=== PATIENT | female | born 1940 | race Caucasian/White ===

== ENCOUNTER 2017-03-28 15:57 | Emergency (ER) | payer MEDICARE ==
[2017-03-28] MEDS ORDERED: ASPIRIN 81 MG CHEW PO STA (16:41)
[2017-03-28] MEDS ORDERED: NITROGLYCERIN OINT 1 INCH/GM PACKET TOPICAL STA (16:41)
--- NOTE | 2017-03-28 16:44 | ED ---
General Adult HPI - General Chief complaint: Shortness of Breath Stated complaint: weak/ROSEMARY/pain under left arm Time Seen by Provider: 03/28/17 16:25 Source: patient, RN notes reviewed Mode of arrival: wheelchair Limitations: no limitations - History of Present Illness Initial comments: Patient is a pleasant 76-year-old female presenting to the emergency Department with complaints of shortness of breath. Patient also has discomfort under her left arm. Patient denies chest pain. Onset of symptoms was around 3:30. Symptoms have somewhat improved and are mild at this time. Patient states her brother did pass away today. No history of similar arm discomfort previously. Patient has had breathing problems previously associated with COPD. No fevers. No nausea or diaphoresis. Symptoms are currently mild. - Related Data Home Medications Medication Instructions Recorded Confirmed Dexlansoprazole [Dexilant] 60 mg PO DAILY 05/22/14 03/28/17 Sertraline [Zoloft] 100 mg PO DAILY 05/22/14 03/28/17 Simvastatin [Zocor] 40 mg PO DAILY 05/22/14 03/28/17 amLODIPine [Norvasc] 5 mg PO DAILY 05/02/16 03/28/17 Calcium Carbonate [Calcium] 600 mg PO DAILY 03/28/17 03/28/17 Dicyclomine [Bentyl] 20 mg PO Q4-6H PRN 03/28/17 03/28/17 Losartan-Hctz 50-12.5 mg [Hyzaar 1 tab PO DAILY 03/28/17 03/28/17 50-12.5] Multivitamins, Thera [Multivitamin 1 tab PO DAILY 03/28/17 03/28/17 (formulary)] [place]-3 Fatty Acids/Fish Oil [Fish 1 cap PO DAILY 03/28/17 03/28/17 Oil 1,000 mg Softgel] Allergies Allergy/AdvReac Type Severity Reaction Status Date / Time codeine Allergy Rash/Hives Verified 03/28/17 16:28 estrogens, conjugated Allergy Unknown Verified 03/28/17 16:49 [From Premarin] gold Au 198 [Gold Au-198] Allergy Rash/Hives Verified 03/28/17 16:28 nickel [Nickel] Allergy Rash/Hives Verified 03/28/17 16:28 silver Allergy Rash/Hives Verified 03/28/17 16:28 Review of Systems ROS Statement: Those systems with pertinent positive or pertinent negative responses have been documented in the HPI. ROS Other: All systems not noted in ROS Statement are negative. Constitutional: Denies: fever Eyes: Denies: eye pain ENT: Denies: ear pain Respiratory: Reports: dyspnea. Denies: cough Cardiovascular: Reports: chest pain Endocrine: Denies: fatigue Gastrointestinal: Denies: abdominal pain Genitourinary: Denies: dysuria Musculoskeletal: Denies: back pain Skin: Denies: rash Neurological: Denies: headache Psychiatric: Reports: other (Patient does admit to feeling stressed out about her brother's .) Past Medical History Past Medical History: COPD, GERD/Reflux, Hyperlipidemia, Hypertension, Osteoarthritis (OA) Additional Past Medical History / Comment(s): HIATAL HERNIA History of Any Multi-Drug Resistant Organisms: None Reported Past Surgical History: Appendectomy, Cholecystectomy, Heart Catheterization, Hysterectomy, Tonsillectomy Additional Past Surgical History / Comment(s): LAPAROSCOPIC EXAM, "POLYPS REMOVED FROM VOICE BOX" Past Anesthesia/Blood Transfusion Reactions: No Reported Reaction Past Psychological History: Anxiety, Depression Smoking Status: Current every day smoker Past Alcohol Use History: None Reported Past Drug Use History: None Reported General Exam Limitations: no limitations General appearance: alert, in no apparent distress Head exam: Present: atraumatic Eye exam: Present: normal appearance, PERRL ENT exam: Present: normal oropharynx Neck exam: Present: normal inspection Respiratory exam: Present: normal lung sounds bilaterally. Absent: chest wall tenderness Cardiovascular Exam: Present: regular rate, normal rhythm Expanded Peripheral pulses: 2+: Radial (R), Radial (L), Dorsalis Pedis (R), Dorsalis Pedis (L) GI/Abdominal exam: Present: soft. Absent: tenderness Extremities exam: Present: normal inspection. Absent: tenderness, pedal edema, calf tenderness Neurological exam: Present: alert Psychiatric exam: Present: normal affect, normal mood Skin exam: Present: normal color Course Vital Signs 03/28/17 03/28/17 03/28/17 16:14 16:46 17:38 Temperature 99.5 F 98.3 F Pulse Rate 75 77 Respiratory 18 18 16 Rate Blood Pressure 134/61 119/52 O2 Sat by Pulse 98 98 Oximetry EKG Findings - EKG Comments: EKG Findings:: Normal sinus rhythm 78. [place] 114. QRS 88. QT 404. QTC 460. Normal axis. Normal QRS. Normal ST-T. Medical Decision Making - Medical Decision Making Patient reevaluated and resting comfortably at bedside. Patient is symptom- free requesting discharge. It is recommended Dr. Balderrama be called for possible admission. Despite this patient is adamant that she wants to leave and does not want Dr. Balderrama called. Patient is made aware limitations of the emergency department. Patient is made aware that although testing looks good at this point cardiac disease has not been ruled out. Patient is made aware that she could be at risk for developing heart attack in the near future. Patient is made aware that she could've had a heart attack and we may not know at this point. Patient refuses to stay but is agreeable to do close follow-up with her doctor tomorrow. - Lab Data Result diagrams: 03/28/17 16:43 03/28/17 16:43 Lab Results 03/28/17 03/28/17 03/28/17 Range/Units 16:43 16:43 16:43 WBC 9.9 (3.8-10.6) k/uL RBC 3.89 (3.80-5.40) m/uL Hgb 12.7 (11.4-16.0) gm/dL Hct 36.7 (34.0-46.0) % MCV 94.6 (80.0-100.0) fL MCH 32.6 (25.0-35.0) pg MCHC 34.5 (31.0-37.0) g/dL RDW 14.4 (11.5-15.5) % Plt Count 291 (150-450) k/uL Neutrophils % 76 % Lymphocytes % 17 % Monocytes % 3 % Eosinophils % 1 % Basophils % 1 % Neutrophils # 7.5 (1.3-7.7) k/uL Lymphocytes # 1.6 (1.0-4.8) k/uL Monocytes # 0.3 (0-1.0) k/uL Eosinophils # 0.1 (0-0.7) k/uL Basophils # 0.1 (0-0.2) k/uL PT (9.0-12.0) sec INR (<1.2) APTT (22.0-30.0) sec D-Dimer (<0.60) mg/L FEU Sodium 136 L (137-145) mmol/L Potassium 3.7 (3.5-5.1) mmol/L Chloride 104 (98-107) mmol/L Carbon Dioxide 25 (22-30) mmol/L Anion Gap 7 mmol/L BUN 9 (7-17) mg/dL Creatinine 0.76 (0.52-1.04) mg/dL Est GFR (MDRD) Af Amer >60 (>60 ml/min/1.73 sqM) Est GFR (MDRD) Non-Af >60 (>60 ml/min/1.73 sqM) Glucose 112 H (74-99) mg/dL Calcium 10.4 H (8.4-10.2) mg/dL Magnesium 1.9 (1.6-2.3) mg/dL Total Bilirubin 0.3 (0.2-1.3) mg/dL AST 16 (14-36) U/L ALT 26 (9-52) U/L Alkaline Phosphatase 86 (38-126) U/L Total Creatine Kinase 48 (30-135) U/L CK-MB (CK-2) 1.2 (0.0-2.4) ng/mL CK-MB (CK-2) Rel Index 2.5 Troponin I <0.012 (0.000-0.034) ng/mL Total Protein 6.4 (6.3-8.2) g/dL Albumin 4.0 (3.5-5.0) g/dL 03/28/17 Range/Units 16:43 WBC (3.8-10.6) k/uL RBC (3.80-5.40) m/uL Hgb (11.4-16.0) gm/dL Hct (34.0-46.0) % MCV (80.0-100.0) fL MCH (25.0-35.0) pg MCHC (31.0-37.0) g/dL RDW (11.5-15.5) % Plt Count (150-450) k/uL Neutrophils % % Lymphocytes % % Monocytes % % Eosinophils % % Basophils % % Neutrophils # (1.3-7.7) k/uL Lymphocytes # (1.0-4.8) k/uL Monocytes # (0-1.0) k/uL Eosinophils # (0-0.7) k/uL Basophils # (0-0.2) k/uL PT 10.7 (9.0-12.0) sec INR 1.1 (<1.2) APTT 24.6 (22.0-30.0) sec D-Dimer 0.47 (<0.60) mg/L FEU Sodium (137-145) mmol/L Potassium (3.5-5.1) mmol/L Chloride (98-107) mmol/L Carbon Dioxide (22-30) mmol/L Anion Gap mmol/L BUN (7-17) mg/dL Creatinine (0.52-1.04) mg/dL Est GFR (MDRD) Af Amer (>60 ml/min/1.73 sqM) Est GFR (MDRD) Non-Af (>60 ml/min/1.73 sqM) Glucose (74-99) mg/dL Calcium (8.4-10.2) mg/dL Magnesium (1.6-2.3) mg/dL Total Bilirubin (0.2-1.3) mg/dL AST (14-36) U/L ALT (9-52) U/L Alkaline Phosphatase (38-126) U/L Total Creatine Kinase (30-135) U/L CK-MB (CK-2) (0.0-2.4) ng/mL CK-MB (CK-2) Rel Index Troponin I (0.000-0.034) ng/mL Total Protein (6.3-8.2) g/dL Albumin (3.5-5.0) g/dL - Radiology Data Radiology results: image reviewed (Chest x-ray shows no acute process) Disposition Clinical Impression: Dyspnea Disposition: HOME SELF-CARE Instructions: Dyspnea (ED), Arm Pain (ED) Additional Instructions: Please follow-up with your doctor tomorrow. Return for increased pain, difficulty breathing, chest pain, worsening or change in symptoms or any other concerns. Aspirin daily. Referrals: Cornel Balderrama Jr, DO [Primary Care Provider] - 1-2 days Time of Disposition: 17:46
[2017-03-28 17:01] LABS: Basophils # (A) 0.1 k/uL (0-0.2); Basophils % (A) 1 %; CH 32.3; CHCM 34.3; Eosinophils # (A) 0.1 k/uL (0-0.7); Eosinophils % (A) 1 %; HCT 36.7 % (34.0-46.0); HDW 2.53; HGB 12.7 gm/dL (11.4-16.0); Luc # (Auto) 0.28; Luc % (Auto) 3; Lymphocytes # (A) 1.6 k/uL (1.0-4.8); Lymphocytes % (A) 17 %; MCH 32.6 pg (25.0-35.0); MCHC 34.5 g/dL (31.0-37.0); MCV 94.6 fL (80.0-100.0); Mean Platelet Volume 8.1; Monocytes # (A) 0.3 k/uL (0-1.0); Monocytes % (A) 3 %; Neutrophils # (A) 7.5 k/uL (1.3-7.7); Neutrophils % (A) 76 %; RBC 3.89 m/uL (3.80-5.40); RDW 14.4 % (11.5-15.5); WBC 9.9 k/uL (3.8-10.6)
[2017-03-28 17:07] LABS: ALT 26 U/L (9-52); AST 16 U/L (14-36); Alkaline Phosphatase 86 U/L (38-126); Anion Gap 7 mmol/L; Blood Urea Nitrogen 9 mg/dL (7-17); Calcium 10.4 mg/dL (8.4-10.2); Carbon Dioxide 25 mmol/L (22-30); Chloride 104 mmol/L (98-107); Glucose 112 mg/dL (74-99); Magnesium 1.9 mg/dL (1.6-2.3); Non-African American GFR(MDRD) >60 (>60 ml/min/1.73 sqM); Potassium 3.7 mmol/L (3.5-5.1); Sodium 136 mmol/L (137-145); Total Bilirubin 0.3 mg/dL (0.2-1.3); Total Protein 6.4 g/dL (6.3-8.2)
[2017-03-28 17:10] LABS: INR 1.1 (<1.2); Partial Thromboplastin Time 24.6 sec (22.0-30.0); Prothrombin Time 10.7 sec (9.0-12.0)
--- NOTE | 2017-03-28 17:10 | XR ---
EXAMINATION TYPE: XR chest 2V DATE OF EXAM: 03/28/2017 COMPARISON: 05/02/2016 HISTORY: Chest pain TECHNIQUE: Frontal and lateral views of the chest are obtained. FINDINGS: Heart and mediastinum are normal. Lungs are clear. There are chest leads. Costophrenic ang les are clear. Bony thorax is intact. IMPRESSION: No active cardiopulmonary disease. Normal heart. No change.
[2017-03-28 17:20] LABS: Creatine Kinase 48 U/L (30-135)
[2017-03-28 17:34] LABS: Creatine Kinase MB 1.2 ng/mL (0.0-2.4); Troponin I <0.012 ng/mL (0.000-0.034)
[2017-03-28 17:39] VITALS: BP 119/52; PULSE 77; RESP 16; TEMP 98.3
== END 2017-03-28 17:56 | disposition home or self-care (01) ==
LOC: EC 15:57
DX: R06.02 Shortness of breath (principal); E78.5 Hyperlipidemia, unspecified; I10 Essential (primary) hypertension; K21.9 Gastro-esophageal reflux disease without esophagitis; F32.9 Major depressive disorder, single episode, unspecified; F41.9 Anxiety disorder, unspecified; F17.200 Nicotine dependence, unspecified, uncomplicated; Z79.899 Other long term (current) drug therapy; Z88.5 Allergy status to narcotic agent; Z88.8 Allergy status to other drugs, medicaments and biological substances; Z91.048 Other nonmedicinal substance allergy status
CPT/HCPCS: 36415; 71020; 80053; 82550; 82553; 83735; 84484; 85025; 85379; 85610; 85730; 93005; 99285

== ENCOUNTER → 2017-10-17 | Outpatient (CLI) | payer MEDICARE ==
--- NOTE | 2017-10-17 16:05 | XR ---
EXAMINATION TYPE: XR lumbar spine 2 or 3V DATE OF EXAM: 10/17/2017 CLINICAL HISTORY: Chronic pain TECHNIQUE: Frontal and lateral images of the lumbar spine are obtained. COMPARISON: CT abdomen June 26, 2016 FINDINGS: There are 5 lumbar type vertebral bodies redemonstrated. The lumbar spine shows redemonst rates levoconvex scoliosis centered at L4 level without evidence of acute fracture or dislocation. Ve rtebral body heights and disk space heights are fairly well-maintained. Mild multilevel anterior and lateral spurring is redemonstrated. Cholecystectomy clips are again seen. Some facet arthropathy lowe r lumbar levels is again seen. Vascular calcification of overlying abdominal aorta is redemonstrated. IMPRESSION: As above. No significant change from comparison CT.
--- NOTE | 2017-10-17 16:05 | XR ---
EXAMINATION TYPE: XR thoracic spine complete DATE OF EXAM: 10/17/2017 CLINICAL HISTORY: Chronic pain TECHNIQUE: Frontal, lateral, and swimmer's view of thoracic spine are obtained. COMPARISON: None. FINDINGS: Osseous structures are demineralized which is noted lower radiographic sensitivity Thoracic spine show satisfactory alignment without evidence of acute fracture or dislocation. Vertebral body heights and disc space heights are preserved. Visualized ribs are unremarkable bilaterally. IMPRESSION: Demineralization otherwise fairly unremarkable study.
== END | disposition home or self-care (01) ==
LOC: RADXRMAIN 15:44
PROVIDERS: ATTEND Family Medicine
DX: M54.9 Dorsalgia, unspecified (principal)
CPT/HCPCS: 72072; 72100

== ENCOUNTER → 2018-08-06 | Outpatient (CLI) | payer MEDICARE ==
[2018-08-06 12:20] LABS: Blood Urea Nitrogen 12 mg/dL (7-17)
--- NOTE | 2018-08-06 13:45 | CT ---
EXAMINATION TYPE: CT abdomen pelvis w con DATE OF EXAM: 08/06/2018 COMPARISON: 06/26/2016 HISTORY: Patient complains of generalized abdominal/pelvic pain, worse after ingestion. CT DLP: 904 mGycm Automated exposure control for dose reduction was used. CONTRAST: CT scan of the abdomen pelvis is performed with IV Contrast, patient injected with 100 mL of Isovue 3 00. FINDINGS- LUNG BASES-heart is enlarged. There is subsegmental areas of consolidation likely the basis of atelec tasis or scar bilaterally.. LIVER/GB-postcholecystectomy changes are noted and there is central mild biliary ductal dilation.. PANCREAS- No gross abnormality is seen. SPLEEN- No gross abnormality is seen. ADRENALS- No gross abnormality is seen. KIDNEYS/BLADDER- no hydronephrosis nephrolithiasis or renal mass. BOWEL-there is wall soft tissue mass involving the duodenum and distal gastric antrum. Suggestion of a duodenal diverticulum. There is mild inflammatory change at this level. Slight haziness of the gary duodenal fat is seen. Recommend correlation for peptic ulcer disease. No free air. Consider endoscopy . Diverticulosis of the colon noted. Appendix is normal caliber. Could not exclude a small amount of inflammatory change around the appendix. Findings were telephoned to Dr. Balderrama at the time of dictat ion. LYMPH NODES- No greater than 1cm abdominal or pelvic lymph nodes areappreciated. OSSEOUS STRUCTURES-prosthetic hip limits assessment pelvis. Hypertrophic and degenerative changes of the vertebral column noted with a scoliotic curvature noted.. OTHER- there is a anterior abdominal wall hernia containing peritoneal fat. Atherosclerotic changes of the aorta noted. Ectasia of the aorta noted measuring 2.7 cm in greatest dimension. IMPRESSION- 1. There is wall thickening. Duodenal haziness in the right upper quadrant. Correlate for peptic ulce r disease. Mucosal lesion not excluded. Consider direct visualization. 2.Appendix is of normal caliber. Could not exclude a small amount of periappendiceal ill-defined atte nuation in inflammation. Although early appendicitis cannot be entirely excluded this may be on the b asis of partial volume averaging and should be correlated clinically.
== END | disposition home or self-care (01) ==
LOC: RADCTMAIN 11:00
PROVIDERS: ATTEND Family Medicine
DX: K31.89 Other diseases of stomach and duodenum (principal); R10.2 Pelvic and perineal pain; Z88.5 Allergy status to narcotic agent; Z88.8 Allergy status to other drugs, medicaments and biological substances
CPT/HCPCS: 82565; 84520; 74177; 36415; Q9967

== ENCOUNTER → 2018-10-23 | Outpatient (CLI) | payer MEDICARE ==
--- NOTE | 2018-10-23 16:58 | CT ---
EXAMINATION TYPE: CT chest wo con DATE OF EXAM: 10/23/2018 COMPARISON: 05/10/2016 and 11/09/2015 HISTORY: 78-year-old female complaining of chest and back pain TECHNIQUE: Contiguous axial scanning of the chest without IV contrast. Coronal and sagittal reconstru ctions performed. CT DLP: 187.4 mGycm Automated exposure control for dose reduction was used. FINDINGS: Heart normal size without pericardial effusion. Coronary vessel calcifications are present. Aorta normal caliber with a mild atherosclerotic arch calcifications and conventional arch vessel bra nching anatomy. No thoracic lymphadenopathy by CT size criteria. There is scarring along the anterior right midlung and additional bandlike scarring within the lingul a. 5 mm lingular pulmonary nodule axial image 28. Additional 5 mm lingular pulmonary nodule just below. 4 mm left lower lobe pulmonary nodule axial image 40. These were present back on 11/09/2015. No consolidation or pleural effusion. Visualized upper abdomen shows focal tortuosity of the infrarenal abdominal aorta. Cholecystectomy cl ips. There is omental fat-containing 2.2 cm right periumbilical hernia. Degenerated dextro convex curvature along the upper lumbar spine. Moderate degenerative disc disease mid to lower thoracic spine and within the visualized lumbar spine. IMPRESSION: 1. STRANDY SCARRING OR ATELECTASIS WITHIN THE LUNGS. NO ACUTE PULMONARY PROCESS SEEN. 2. A FEW PULMONARY NODULES MEASURING UP TO 5 MM ON THE LEFT, STABLE FROM 11/09/2015 COMPATIBLE WITH A B ENIGN ETIOLOGY. 3. A 2.2 CM OMENTAL FAT-CONTAINING RIGHT PERIUMBILICAL HERNIA. 4. DEGENERATIVE DISC DISEASE MID TO LOWER THORACIC SPINE AND WITHIN THE VISUALIZED LUMBAR SPINE.
== END | disposition home or self-care (01) ==
LOC: RADCTMAIN 14:55
PROVIDERS: ATTEND Family Medicine
DX: R91.8 Other nonspecific abnormal finding of lung field (principal); I71.2 Thoracic aortic aneurysm, without rupture
CPT/HCPCS: 71250

== ENCOUNTER → 2019-02-28 | Outpatient (CLI) | payer MEDICARE | END | disposition home or self-care (01) | LOC: RADNMMAIN 08:35 | PROVIDERS: ATTEND Family Medicine | DX: Z53.9 Procedure and treatment not carried out, unspecified reason (principal) ==

== ENCOUNTER → 2019-03-11 | Outpatient (CLI) | payer MEDICARE ==
--- NOTE | 2019-03-12 11:46 | ECHOF ---
Referral Reason:R07.1 chest pain MEASUREMENTS -------- HEIGHT: 156.2 cm WEIGHT: 54.9 kg BP: 133/63 RVIDd: 2.9 cm (< 3.3) IVSd: 1.1 cm (0.6 - 1.1) LVIDd: 3.6 cm (3.9 - 5.3) LVPWd: 0.9 cm (0.6 - 1.1) IVSs: 1.4 cm LVIDs: 2.5 cm LVPWs: 1.5 cm LA Diam: 2.9 cm (2.7 - 3.8) LAESV Index (A-L): 15.40 ml/m Ao Diam: 2.9 cm (2.0 - 3.7) AV Cusp: 1.5 cm (1.5 - 2.6) MV EXCURSION: 14.924 mm (> 18.000) MV EF SLOPE: 58 mm/s (70 - 150) EPSS: 2.0 cm MV E Ulises: 0.69 m/s MV DecT: 185 ms MV A Ulises: 1.02 m/s MV E/A Ratio: 0.68 FINDINGS -------- Sinus rhythm. This was a technically adequate study. The left ventricular size is normal. There is borderline concentric left ventricular hypertrophy. Overall left ventricular systolic function is normal with, an EF between 60 - 65 %. The right ventricle is normal in size. Normal LA size by volume 22+/-6 ml/m2. The right atrium is normal in size. Interatrial and interventricular septum intact. The aortic valve is trileaflet and appears structurally normal. The mitral valve is normal. The tricuspid valve appears structurally normal. The pulmonic valve was not well visualized. The aortic root size is normal. Normal inferior vena cava with normal inspiratory collapse consistent with estimated right atrial pre ssure of 5 mmHg. There is no pericardial effusion. CONCLUSIONS -------- 1. Sinus rhythm. 2. This was a technically adequate study. 3. The left ventricular size is normal. 4. There is borderline concentric left ventricular hypertrophy. 5. Overall left ventricular systolic function is normal with, an EF between 60 - 65 %. 6. The right ventricle is normal in size. 7. Normal LA size by volume 22+/-6 ml/m2. 8. The right atrium is normal in size. 9. Interatrial and interventricular septum intact. 10. The aortic valve is trileaflet and appears structurally normal. 11. The mitral valve is normal. 12. The tricuspid valve appears structurally normal. 13. The pulmonic valve was not well visualized. 14. The aortic root size is normal. 15. Normal inferior vena cava with normal inspiratory collapse consistent with estimated right atrial pressure of 5 mmHg. 16. There is no pericardial effusion. HONING MACHINE OPERATOR SEMIAUTOMATIC: Cielo Carcamo RDCS
== END | disposition home or self-care (01) ==
LOC: RADECHMAIN 10:24
PROVIDERS: ATTEND Family Medicine
DX: I51.7 Cardiomegaly (principal)
CPT/HCPCS: 93306

== ENCOUNTER → 2019-05-30 | Outpatient (CLI) | payer MEDICARE ==
--- NOTE | 2019-05-30 13:36 | US ---
EXAMINATION TYPE: US carotid duplex BILAT DATE OF EXAM: 05/30/2019 COMPARISON: NONE CLINICAL HISTORY: R42 Dizziness. Dizziness EXAM MEASUREMENTS: RIGHT: Peak Systolic Velocity (PSV) cm/sec ----- Right CCA: 81.6 ----- Right ICA: 87.1 ----- Right ECA: 74.9 ICA/CCA ratio: 0.8 RIGHT: End Diastole cm/sec ----- Right CCA: 32.3 ----- Right ICA: 23.2 ----- Right ECA: 13.0 LEFT: Peak Systolic Velocity (PSV) cm/sec ----- Left CCA: 108.8 ----- Left ICA: 110.8 ----- Left ECA: 150.2 ICA/CCA ratio: 2.0 LEFT: End Diastole cm/sec ----- Left CCA: 39.8 ----- Left ICA: 43.8 ----- Left ECA: 24.1 VERTEBRALS (direction of flow): Right Vertebral: Antegrade Left Vertebral: Antegrade Rhythm: Normal No significant stenosis seen IMPRESSION: No significant flow-limiting stenosis. Criteria for Assigning % of Stenosis / Diameter reduction (Estimation based on the indirect measurements of the internal carotid artery velocities (ICA PSV). 1. Normal (no stenosis)=ICA PSV < 125 cm/s: ratio < 2.0: ICA EDV<40 cm/s. 2. Less than 50% stenosis=ICA PSV < 125 cm/s: ratio < 2.0: ICA EDV<40 cm/s. 3. 50 to 69% stenosis=ICA PSV of 125 to 230 cm/s: ration 2.0 ? 4.0: ICA EDV 40-100 cm/s. 4. Greater than 70% stenosis to near occlusion= ICA PSV > 230 cm/s: ratio > 4.0: ICA EDV > 100 cm/s. 5. Near occlusion= ICA PSV velocities may be low or undetectable: variable ratio and ICA EDV. 6. Total occlusion=unable to detect flow.
== END | disposition home or self-care (01) ==
LOC: LABWHC1 12:56
PROVIDERS: ATTEND Family Medicine
DX: R42 Dizziness and giddiness (principal); R55 Syncope and collapse
CPT/HCPCS: 93880

== ENCOUNTER → 2019-06-06 | Outpatient (CLI) | payer MEDICARE ==
[2019-06-06 17:43] LABS: Basophils # (A) 0.2 k/uL (0-0.2); Basophils % (A) 2 %; Eosinophils # (A) 0.2 k/uL (0-0.7); Eosinophils % (A) 2 %; HCT 42.3 % (34.0-46.0); HGB 14.5 gm/dL (11.4-16.0); Lymphocytes # (A) 2.3 k/uL (1.0-4.8); Lymphocytes % (A) 25 %; MCH 31.3 pg (25.0-35.0); MCHC 34.3 g/dL (31.0-37.0); MCV 91.4 fL (80.0-100.0); Mean Platelet Volume 8.2; Monocytes # (A) 0.6 k/uL (0-1.0); Monocytes % (A) 6 %; Neutrophils # (A) 5.6 k/uL (1.3-7.7); Neutrophils % (A) 61 %; Platelet Count 283 k/uL (150-450); RBC 4.63 m/uL (3.80-5.40); RDW 14.4 % (11.5-15.5); WBC 9.2 k/uL (3.8-10.6)
[2019-06-06 18:41] LABS: Erythrocyte Sedimentation Rate 9 mm/hr (0-20)
[2019-06-06 23:39] LABS: African American GFR (CKD) 56.1 (60.0-200.0); Albumin 4.6 g/dL (3.80-4.90); Albumin/Globulin Ratio 2.09 (1.60-3.17); Anion Gap 9.1 mmol/L (4.00-12.00); BUN/Creat Ratio 12.73 Ratio (12.00-20.00); C Reactive Protein 1.6 mg/dL (0.0-0.8); Calcium 10.6 mg/dL (8.7-10.3); Carbon Dioxide 24.9 mmol/L (21.6-31.8); Globulin 2.2 g/dL (1.6-3.3); Potassium 3.9 mmol/L (3.5-5.5); Total Bilirubin 0.4 mg/dL (0.3-1.2); Total Protein 6.8 g/dL (6.2-8.2)
== END | disposition home or self-care (01) ==
LOC: LABWHC1 16:41
PROVIDERS: ATTEND Nurse Practitioner Family
DX: E03.9 Hypothyroidism, unspecified (principal); R42 Dizziness and giddiness; R53.83 Other fatigue
CPT/HCPCS: 36415; 80053; 84439; 84443; 85025; 85652; 86140

== ENCOUNTER 2019-06-16 19:13 | Emergency (ER) | payer MEDICARE ==
[2019-06-16 19:18] VITALS: TEMP 98.6
--- NOTE | 2019-06-16 19:37 | ED ---
General Adult HPI - General Chief complaint: Dizziness Stated complaint: nausea, dizziness Time Seen by Provider: 06/16/19 19:21 Source: patient Mode of arrival: wheelchair Limitations: no limitations - History of Present Illness Initial comments: Patient presents to the ED with her daughter for evaluation. Patient reports having a cough and feeling nauseated for the past couple of weeks or so. Patient states that she was seen by her PCP 4 days ago, and she was diagnosed with pneumonia at that time, although she states that a chest x-ray was not obtained. Patient states that she was given a shot for her nausea, as well as an antibiotic shot for her pneumonia at her PCP's clinic. She states that she has developed constant bilateral chest pain, which is worse with coughing, and a headache since yesterday morning. Patient also admits to feeling somewhat lightheaded and dyspneic. Patient denies trauma or injury, sudden onset of headache, LOC, focal numbness/weakness/neuro deficit, visual changes, speech difficulty, neck pain or stiffness, arm or jaw pain, back pain, pleuritic pain, hemoptysis, palpitations, syncope, vomiting or diaphoresis, abdominal pain, diarrhea, bloody or melanotic stool, dysuria or urinary symptoms, leg or calf s welling or tenderness, or any other symptoms or complaints. - Related Data Home Medications Medication Instructions Recorded Confirmed Sertraline [Zoloft] 100 mg PO DAILY 05/22/14 06/16/19 Simvastatin [Zocor] 40 mg PO DAILY 05/22/14 06/16/19 amLODIPine [Norvasc] 5 mg PO DAILY 05/02/16 06/16/19 Multivitamins, Thera [Multivitamin 1 tab PO DAILY 03/28/17 06/16/19 (formulary)] Ascorbic Acid [Vitamin C] 500 mg PO DAILY 06/16/19 06/16/19 Aspirin EC [Ecotrin] 325 mg PO DAILY 06/16/19 06/16/19 Hydrochlorothiazide [Hydrodiuril] 12.5 mg PO DAILY 06/16/19 06/16/19 Losartan [Cozaar] 50 mg PO DAILY 06/16/19 06/16/19 Meclizine HCl 25 mg PO TID PRN 06/16/19 06/16/19 Melatonin 5 mg PO HS PRN 06/16/19 06/16/19 Omeprazole [PriLOSEC] 20 mg PO AC-BID 06/16/19 06/16/19 Previous Rx's Medication Instructions Recorded Doxycycline Hyclate 100 mg PO BID 7 Days #14 tab 06/16/19 Allergies Allergy/AdvReac Type Severity Reaction Status Date / Time codeine Allergy Rash/Hives Verified 06/16/19 19:33 estrogens, conjugated Allergy Unknown Verified 06/16/19 19:33 [From Premarin] gold Au 198 [Gold Au-198] Allergy Rash/Hives Verified 06/16/19 19:33 nickel [Nickel] Allergy Rash/Hives Verified 06/16/19 19:33 silver Allergy Rash/Hives Verified 06/16/19 19:33 Review of Systems ROS Statement: Those systems with pertinent positive or pertinent negative responses have been documented in the HPI. ROS Other: All systems not noted in ROS Statement are negative. Past Medical History Past Medical History: COPD, GERD/Reflux, Hyperlipidemia, Hypertension, Osteoarthritis (OA) Additional Past Medical History / Comment(s): HIATAL HERNIA History of Any Multi-Drug Resistant Organisms: None Reported Past Surgical History: Appendectomy, Cholecystectomy, Heart Catheterization, Hysterectomy, Tonsillectomy Additional Past Surgical History / Comment(s): LAPAROSCOPIC EXAM, "POLYPS REMOVED FROM VOICE BOX" Past Anesthesia/Blood Transfusion Reactions: No Reported Reaction Past Psychological History: Anxiety, Depression Smoking Status: Current every day smoker Past Alcohol Use History: None Reported Past Drug Use History: None Reported General Exam Limitations: no limitations General appearance: alert, in no apparent distress Head exam: Present: atraumatic, normocephalic Eye exam: Present: normal appearance, PERRL, EOMI ENT exam: Present: normal oropharynx, mucous membranes moist Neck exam: Present: other (Trachea is in midline). Absent: tenderness, meningismus Respiratory exam: Present: normal lung sounds bilaterally. Absent: respiratory distress, wheezes, rales, rhonchi, chest wall tenderness Cardiovascular Exam: Present: regular rate, normal rhythm, normal heart sounds, other (Normal radial pulses bilaterally) GI/Abdominal exam: Present: soft. Absent: distended, tenderness Extremities exam: Present: full ROM. Absent: tenderness, pedal edema, calf tenderness Neurological exam: Present: alert, oriented X3, CN II-XII intact. Absent: motor sensory deficit Psychiatric exam: Present: normal affect, normal mood Skin exam: Present: warm, dry, intact, normal color Course Vital Signs 06/16/19 06/16/19 06/16/19 19:14 22:48 22:51 Temperature 98.6 F Pulse Rate 86 64 Respiratory 26 H 16 18 Rate Blood Pressure 134/75 147/73 O2 Sat by Pulse 92 L 96 Oximetry EKG Findings - EKG Comments: EKG Findings:: Normal sinus rhythm, ventricular rate of 74 bpm, normal WA and QRS intervals, normal QT interval, normal axis, nonspecific ST abnormality Medical Decision Making - Medical Decision Making Patient reports having a cough for the past 2 weeks or so, and her chest x-ray shows evidence of right middle lobe pneumonia. Patient has mild leukocytosis. Patient is afebrile. I suspect that the patient's symptoms are likely secondary to pneumonia. Patient reports having constant chest pain, which is worse with coughing, since yesterday morning, and she has a negative troponin here in the ED. Patient's head CT is also negative. Patient's labs are otherwise fairly unremarkable. I do not suspect that the patient's chest pain is from a cardiac etiology. Will discharge patient home with a prescription for a one-week course of doxycycline. Patient and family were clearly explained return and follow-up instructions. Patient was instructed to return to the ED should she develop new or worsening symptoms. Patient was also instructed to follow up closely with her primary care provider. Patient feels comfortable with this plan. - Lab Data Result diagrams: 06/16/19 20:20 06/16/19 20:20 Lab Results 06/16/19 06/16/19 06/16/19 Range/Units 20:20 20:20 20:20 WBC 11.6 H (3.8-10.6) k/uL RBC 4.15 (3.80-5.40) m/uL Hgb 12.8 (11.4-16.0) gm/dL Hct 39.4 (34.0-46.0) % MCV 94.8 (80.0-100.0) fL MCH 30.9 (25.0-35.0) pg MCHC 32.6 (31.0-37.0) g/dL RDW 14.1 (11.5-15.5) % Plt Count 340 (150-450) k/uL Neutrophils % 67 % Lymphocytes % 20 % Monocytes % 5 % Eosinophils % 3 % Basophils % 1 % Neutrophils # 7.8 H (1.3-7.7) k/uL Lymphocytes # 2.3 (1.0-4.8) k/uL Monocytes # 0.6 (0-1.0) k/uL Eosinophils # 0.3 (0-0.7) k/uL Basophils # 0.1 (0-0.2) k/uL PT (9.0-12.0) sec INR (<1.2) APTT (22.0-30.0) sec Sodium 137 (137-145) mmol/L Potassium 3.8 (3.5-5.1) mmol/L Chloride 104 (98-107) mmol/L Carbon Dioxide 23 (22-30) mmol/L Anion Gap 10 mmol/L BUN 10 (7-17) mg/dL Creatinine 0.76 (0.52-1.04) mg/dL Est GFR (CKD-EPI)AfAm 88 (>60 ml/min/1.73 sqM) Est GFR (CKD-EPI)NonAf 76 (>60 ml/min/1.73 sqM) Glucose 105 H (74-99) mg/dL Plasma Lactic Acid Jude 1.0 (0.7-2.0) mmol/L Calcium 9.7 (8.4-10.2) mg/dL Total Bilirubin 0.3 (0.2-1.3) mg/dL AST 19 (14-36) U/L ALT 18 (9-52) U/L Alkaline Phosphatase 129 H (38-126) U/L Troponin I (0.000-0.034) ng/mL NT-Pro-B Natriuret Pep pg/mL Total Protein 6.7 (6.3-8.2) g/dL Albumin 3.8 (3.5-5.0) g/dL 06/16/19 06/16/19 06/16/19 Range/Units 20:20 20:20 20:20 WBC (3.8-10.6) k/uL RBC (3.80-5.40) m/uL Hgb (11.4-16.0) gm/dL Hct (34.0-46.0) % MCV (80.0-100.0) fL MCH (25.0-35.0) pg MCHC (31.0-37.0) g/dL RDW (11.5-15.5) % Plt Count (150-450) k/uL Neutrophils % % Lymphocytes % % Monocytes % % Eosinophils % % Basophils % % Neutrophils # (1.3-7.7) k/uL Lymphocytes # (1.0-4.8) k/uL Monocytes # (0-1.0) k/uL Eosinophils # (0-0.7) k/uL Basophils # (0-0.2) k/uL PT 9.6 (9.0-12.0) sec INR 0.9 (<1.2) APTT 25.8 (22.0-30.0) sec Sodium (137-145) mmol/L Potassium (3.5-5.1) mmol/L Chloride (98-107) mmol/L Carbon Dioxide (22-30) mmol/L Anion Gap mmol/L BUN (7-17) mg/dL Creatinine (0.52-1.04) mg/dL Est GFR (CKD-EPI)AfAm (>60 ml/min/1.73 sqM) Est GFR (CKD-EPI)NonAf (>60 ml/min/1.73 sqM) Glucose (74-99) mg/dL Plasma Lactic Acid Jude (0.7-2.0) mmol/L Calcium (8.4-10.2) mg/dL Total Bilirubin (0.2-1.3) mg/dL AST (14-36) U/L ALT (9-52) U/L Alkaline Phosphatase (38-126) U/L Troponin I <0.012 (0.000-0.034) ng/mL NT-Pro-B Natriuret Pep 341 pg/mL Total Protein (6.3-8.2) g/dL Albumin (3.5-5.0) g/dL - Radiology Data Radiology results: report reviewed (CT head shows no acute intracranial abno rmality; chest x-ray shows mild right middle lobe linear infiltrate and atelectasis) Disposition Clinical Impression: Headache, Chest pain Narrative: Suspected pneumonia Disposition: HOME SELF-CARE Condition: Stable Instructions (If sedation given, give patient instructions): Chest Pain (ED), Acute Headache (ED), Pneumonia (ED) Additional Instructions: Return to the ER if you develop new or worsening pain, increased shortness of breath, vomiting, feeling dizzy or faint, or new or worsening symptoms. Follow up closely with your primary care provider. Prescriptions: Doxycycline Hyclate 100 mg PO BID 7 Days #14 tab Is patient prescribed a controlled substance at d/c from ED?: No Referrals: Cornel Balderrama Jr, DO [Primary Care Provider] - 1-2 days Time of Disposition: 23:15
[2019-06-16 20:35] LABS: Basophils # (A) 0.1 k/uL (0-0.2); Basophils % (A) 1 %; Eosinophils # (A) 0.3 k/uL (0-0.7); Eosinophils % (A) 3 %; HCT 39.4 % (34.0-46.0); HGB 12.8 gm/dL (11.4-16.0); Lymphocytes # (A) 2.3 k/uL (1.0-4.8); Lymphocytes % (A) 20 %; MCH 30.9 pg (25.0-35.0); MCHC 32.6 g/dL (31.0-37.0); MCV 94.8 fL (80.0-100.0); Mean Platelet Volume 8.1; Monocytes # (A) 0.6 k/uL (0-1.0); Monocytes % (A) 5 %; Neutrophils # (A) 7.8 k/uL (1.3-7.7); Neutrophils % (A) 67 %; Platelet Count 340 k/uL (150-450); RBC 4.15 m/uL (3.80-5.40); RDW 14.1 % (11.5-15.5); WBC 11.6 k/uL (3.8-10.6)
--- NOTE | 2019-06-16 20:42 | XR ---
EXAMINATION TYPE: XR chest 2V DATE OF EXAM: 06/16/2019 COMPARISON: 03/28/2017 HISTORY: Dizziness. Short of breath TECHNIQUE: Frontal and lateral views of the chest are obtained. FINDINGS: There is small linear density in the right middle lobe. The other lung rodgers are fairly c lear. Heart size is normal. There is no heart failure. There are no hilar masses. There are chest geovanna ds. There is no pleural effusion. IMPRESSION: There is some mild right middle lobe linear infiltrate and atelectasis that appears new compared to old exam. Normal heart. No heart failure.
[2019-06-16 20:43] LABS: INR 0.9 (<1.2); Partial Thromboplastin Time 25.8 sec (22.0-30.0); Prothrombin Time 9.6 sec (9.0-12.0)
[2019-06-16 20:44] LABS: Albumin 3.8 g/dL (3.5-5.0); Calcium 9.7 mg/dL (8.4-10.2); Potassium 3.8 mmol/L (3.5-5.1); Total Bilirubin 0.3 mg/dL (0.2-1.3); Total Protein 6.7 g/dL (6.3-8.2)
--- NOTE | 2019-06-16 20:44 | CT ---
EXAMINATION TYPE: CT brain wo con DATE OF EXAM: 06/16/2019 COMPARISON: None HISTORY: Headache and dizziness. CT DLP: 1063.4 mGycm Automated exposure control for dose reduction was used. FINDINGS: Ventricles have normal size. There is no mass effect nor midline shift. There is no sign of intracran ial hemorrhage. There is mild cerebral atrophy appropriate for age. Calvarium is intact. IMPRESSION: MINIMAL ATROPHY. NO ACUTE INTRACRANIAL ABNORMALITY.
[2019-06-16] MEDS ORDERED: SODIUM CHLORIDE 0.9% 500 ML 500 ML IV ONE (21:39)
[2019-06-16] MEDS ORDERED: METOCLOPRAMIDE 5 MG/ML 2 ML VIAL IVP STA (21:40)
[2019-06-16] MEDS ORDERED: diphenhydrAMINE 50 MG/ML 1 ML VIAL IVP STA (21:40)
[2019-06-16] MEDS ORDERED: MORPHINE SULFATE 4 MG/ML SYRINGE IVP STA (21:40)
[2019-06-16 22:49] VITALS: BP 147/73; PULSE 64
[2019-06-16 22:52] VITALS: RESP 18
== END 2019-06-16 23:36 | disposition home or self-care (01) ==
LOC: EC 19:13
DX: R51 Headache (principal); R07.9 Chest pain, unspecified; J18.1 Lobar pneumonia, unspecified organism; D72.829 Elevated white blood cell count, unspecified; R05 Cough; R11.0 Nausea; R42 Dizziness and giddiness; R06.00 Dyspnea, unspecified; K21.9 Gastro-esophageal reflux disease without esophagitis; E78.5 Hyperlipidemia, unspecified; I10 Essential (primary) hypertension; M19.90 Unspecified osteoarthritis, unspecified site; F32.9 Major depressive disorder, single episode, unspecified; F41.9 Anxiety disorder, unspecified; F17.200 Nicotine dependence, unspecified, uncomplicated; Z88.5 Allergy status to narcotic agent; Z88.8 Allergy status to other drugs, medicaments and biological substances; Z91.048 Other nonmedicinal substance allergy status; Z79.82 Long term (current) use of aspirin; Z79.899 Other long term (current) drug therapy; Z87.09 Personal history of other diseases of the respiratory system; Z90.49 Acquired absence of other specified parts of digestive tract; Z90.89 Acquired absence of other organs; Z95.818 Presence of other cardiac implants and grafts
CPT/HCPCS: 36415; 93005; 83880; 80053; 83605; 84484; 85025; 85610; 85730; 71046; 70450; 99284; 96374; 96375 ×2; J2270; J1200; J2765

== ENCOUNTER → 2019-07-14 | Outpatient (CLI) | payer MEDICARE ==
[2019-07-14 14:08] LABS: Basophils # (A) 0.2 k/uL (0-0.2); Basophils % (A) 2 %; Eosinophils # (A) 0.3 k/uL (0-0.7); Eosinophils % (A) 3 %; HCT 45.7 % (34.0-46.0); Lymphocytes # (A) 2.5 k/uL (1.0-4.8); Lymphocytes % (A) 24 %; MCH 31.2 pg (25.0-35.0); MCHC 32.8 g/dL (31.0-37.0); MCV 94.9 fL (80.0-100.0); Mean Platelet Volume 7.7; Monocytes # (A) 0.6 k/uL (0-1.0); Monocytes % (A) 5 %; Neutrophils # (A) 6.4 k/uL (1.3-7.7); Neutrophils % (A) 62 %; Platelet Count 339 k/uL (150-450); RBC 4.82 m/uL (3.80-5.40); RDW 14.7 % (11.5-15.5); WBC 10.4 k/uL (3.8-10.6)
[2019-07-14 14:23] LABS: ALT 22 U/L (9-52); AST 21 U/L (14-36); African American GFR (CKD) 72 (>60 ml/min/1.73 sqM); Albumin 4.6 g/dL (3.5-5.0); Alkaline Phosphatase 136 U/L (38-126); Amylase 75 U/L (30-110); Anion Gap 11 mmol/L; Blood Urea Nitrogen 10 mg/dL (7-17); C Reactive Protein <5.0 mg/L (<10.0); Calcium 10.6 mg/dL (8.4-10.2); Carbon Dioxide 23 mmol/L (22-30); Chloride 106 mmol/L (98-107); Glucose 108 mg/dL (74-99); Potassium 4.3 mmol/L (3.5-5.1); Sodium 140 mmol/L (137-145); Total Bilirubin 0.4 mg/dL (0.2-1.3); Total Protein 7.9 g/dL (6.3-8.2)
[2019-07-14 14:42] LABS: Troponin I <0.012 ng/mL (0.000-0.034)
[2019-07-14 15:01] LABS: Erythrocyte Sedimentation Rate 12 mm/hr (0-20)
--- NOTE | 2019-07-14 16:58 | CT ---
EXAMINATION TYPE: CT abdomen pelvis w con DATE OF EXAM: 07/14/2019 COMPARISON: 08/06/2018 HISTORY: 78-year-old female with change in bowel habits, abdominal/pelvic pain. Right upper quadrant pain, stomach pains TECHNIQUE: Contiguous axial scanning of the abdomen and pelvis following administration of 100 ml Iso charmaine 300 IV contrast. Delayed images through the kidneys and coronal/sagittal reconstructions perform ed. CT DLP: 452.8 mGycm Automated exposure control for dose reduction was used. FINDINGS: Heart normal size without pericardial effusion. Some chronic volume loss seen, patchy opacity inferio r lingula and medial basilar right middle lobe. Strandy areas of atelectasis or scarring in the remai nder of the lower lungs. No pleural effusion. No focal liver lesion or biliary ductal dilatation. Portal venous system is patent. Cholecystectomy clips. Adrenal glands, kidneys, spleen, and pancreas appear within normal limits. Redemonstrated diverticulum of the second portion of the duodenum projecting into the pancreatic head region. 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 Tortuous infrarenal abdominal aorta measuring up to 2.0 cm. Moderate atherosclerotic calcifications infrarenal abdominal aorta ext ending into the iliac arteries. No dilated small bowel, free fluid, or free air. No mesenteric or retroperitoneal lymphadenopathy. Portions of a normal appendix are visualized. Moderate stool burden. Sigmoid diverticulosis without p ericolonic inflammatory change. Bladder is urine distended. Uterus surgically absent. No abnormal fluid collection seen in the pelvis or pelvic lymphadenopathy with some limitation in assessment due to artifact from the patient's left hip total arthroplasty. Bones: Left hip arthroplasty. [id number] degenerative change right hip. Dextro convex scoliosis along the upper third lumbar spine. Mild disc bulging at multiple levels with facet arthropathy lowe r lumbar spine. IMPRESSION: 1. SIGMOID DIVERTICULOSIS WITHOUT ACUTE DIVERTICULITIS. 2. STABLE MILD ANEURYSM UPPER ABDOMINAL AORTA AT 3.0 CM. MODERATE PROSTATIC CALCIFICATIONS INFRARENAL ABDOMINAL AORTA AND ILIAC ARTERIES. 3. MODERATE STOOL BURDEN.
== END | disposition home or self-care (01) ==
LOC: RADCTMAIN 12:44
PROVIDERS: ATTEND Family Medicine
DX: K57.30 Diverticulosis of large intestine without perforation or abscess without bleeding (principal); I71.4 Abdominal aortic aneurysm, without rupture; I70.0 Atherosclerosis of aorta; I70.8 Atherosclerosis of other arteries; Z88.5 Allergy status to narcotic agent; Z88.2 Allergy status to sulfonamides; Z88.8 Allergy status to other drugs, medicaments and biological substances
CPT/HCPCS: 80053; 85652; 82150; 82553; 83690; 84484; 85025; 86140; 74177; 36415; Q9967 ×2

== ENCOUNTER 2021-09-19 14:46 | Emergency (ER) | payer MEDICARE ==
[2021-09-19] MEDS ORDERED: SODIUM CHLORIDE 0.9% 500 ML 500 ML IV STA (17:14)
--- NOTE | 2021-09-19 17:20 | ED ---
General Adult HPI - General Chief complaint: Recheck/Abnormal Lab/Rx Stated complaint: ROSEMARY Time Seen by Provider: 09/19/21 17:06 Source: patient, family (daughter), RN notes reviewed Mode of arrival: ambulatory Limitations: no limitations - History of Present Illness Initial comments: 81-year-old female, alert and oriented 4, presents to the emergency room with her daughter with complaints of 3 years of generalized weakness and shortness of breath. She has a history of lung cancer and she was being treated in [place] for this. She finished her chemotherapy this summer. She continues to have shortness of breath, fatigue and back pain with decreased appetite over the past 3 years. She states the primary care doctor has only prescribed albuterol inhalers. She did have coronavirus in August and had respiratory symptoms at that time. She denies any fevers, cough, chest pain, nausea vomiting or diarrhea. Does report a decreased appetite. Family member at bedside states that she thinks she just needs IV fluids. -: year(s) (3) Location: back Severity scale (1-10): 0 Consistency: intermittent, now resolved Associated Symptoms: loss of appetite, malaise, shortness of breath, weakness Treatments Prior to Arrival: none - Related Data Home Medications Medication Instructions Recorded Confirmed Losartan [Cozaar] 25 mg PO DAILY 06/16/19 09/19/21 Omeprazole [PriLOSEC] 20 mg PO DAILY 06/16/19 09/19/21 Acetaminophen/Diphenhydramine 1 tab PO HS PRN 09/19/21 09/19/21 [Tylenol PM 500-25mg] Ascorbic Acid [Vitamin C] 250 mg PO DAILY 09/19/21 09/19/21 Aspirin EC [Ecotrin Low Dose] 81 mg PO DAILY 09/19/21 09/19/21 Calcium Carbonate [Calcium] 600 mg PO DAILY 09/19/21 09/19/21 Donepezil HCl [Aricept] 5 mg PO HS 09/19/21 09/19/21 Fluticasone/Vilanterol [Breo 1 puff INHALATION RT-DAILY 09/19/21 09/19/21 Ellipta 100-25 Mcg Inhaler] Loperamide HCl [Imodium A-D] 2 mg PO BID PRN 09/19/21 09/19/21 Multivit-Min/FA/Lycopen/Lutein 1 tab PO DAILY 09/19/21 09/19/21 [Centrum Silver Tablet] [place]-3 Fatty Acids [[place]-3] 1,000 mg PO DAILY 09/19/21 09/19/21 Sertraline HCl [Zoloft] 25 mg PO DAILY 09/19/21 09/19/21 Umeclidinium [place] [Incruse 1 puff INHALATION RT-DAILY 09/19/21 09/19/21 Ellipta] Allergies Allergy/AdvReac Type Severity Reaction Status Date / Time codeine Allergy Rash/Hives Verified 09/19/21 17:41 estrogens, conjugated Allergy Unknown Verified 09/19/21 17:41 [From Premarin] gold Au 198 [Gold Au-198] Allergy Rash/Hives Verified 09/19/21 17:41 nickel [Nickel] Allergy Rash/Hives Verified 09/19/21 17:41 NSAIDS (Non-Steroidal Allergy Unknown Verified 09/19/21 17:41 Anti-Inflamma ondansetron Allergy Unknown Verified 09/19/21 17:41 silver Allergy Rash/Hives Verified 09/19/21 17:41 Review of Systems ROS Statement: Those systems with pertinent positive or pertinent negative responses have been documented in the HPI. ROS Other: All systems not noted in ROS Statement are negative. Past Medical History Past Medical History: COPD, GERD/Reflux, Hyperlipidemia, Hypertension, Osteoarthritis (OA) Additional Past Medical History / Comment(s): HIATAL HERNIA History of Any Multi-Drug Resistant Organisms: None Reported Past Surgical History: Appendectomy, Cholecystectomy, Heart Catheterization, Hysterectomy, Tonsillectomy Additional Past Surgical History / Comment(s): LAPAROSCOPIC EXAM, "POLYPS REMOVED FROM VOICE BOX" Past Anesthesia/Blood Transfusion Reactions: No Reported Reaction Past Psychological History: Anxiety, Depression Smoking Status: Current every day smoker Past Alcohol Use History: None Reported Past Drug Use History: None Reported General Exam Limitations: no limitations General appearance: alert, in no apparent distress Head exam: Present: atraumatic, normocephalic, normal inspection Eye exam: Present: normal appearance. Absent: conjunctival injection, periorbital swelling, periorbital tenderness ENT exam: Present: normal exam, normal oropharynx, mucous membranes moist Neck exam: Present: normal inspection, full ROM. Absent: tenderness, meningismus, lymphadenopathy Respiratory exam: Present: rales (Bilaterally). Absent: respiratory distress, wheezes, rhonchi, stridor, chest wall tenderness, accessory muscle use, decreased breath sounds Cardiovascular Exam: Present: regular rate, normal rhythm, normal heart sounds. Absent: clicks, JVD GI/Abdominal exam: Present: soft, normal bowel sounds. Absent: distended, tenderness, guarding, rebound, rigid Extremities exam: Present: normal inspection, full ROM, normal capillary refill. Absent: tenderness, pedal edema, joint swelling, calf tenderness Back exam: Present: normal inspection, full ROM. Absent: tenderness, CVA tenderness (R), CVA tenderness (L), rash noted Neurological exam: Present: alert, oriented X3 Psychiatric exam: Present: normal affect, normal mood Skin exam: Present: warm, dry, intact, normal color. Absent: rash, cyanosis, diaphoretic, erythema, petechiae, pallor, mottled Course Vital Signs 09/19/21 09/19/21 09/19/21 15:41 18:30 20:45 Temperature 98.1 F 98.4 F Pulse Rate 78 64 79 Respiratory 20 18 20 Rate Blood Pressure 117/65 146/63 153/78 O2 Sat by Pulse 96 97 95 Oximetry EKG Findings - EKG Results: EKG: sinus rhythm (Ventricular rate of 60, OR interval 0.116, QRS 0.92, QTC .448) Medical Decision Making - Medical Decision Making 81-year-old female presents with her daughter with complaints of 3 years of generalized weakness and shortness of breath. She has a history of lung cancer and finished her chemotherapy this summer. She continues to have shortness of breath, fatigue, back pain with decreased appetite. Labs are unremarkable, EKG and x-ray are negative. Patient states she is feeling much better after IV fluids and is ready to go home. Her daughter at the bedside states that they'll contact their doctor in the morning. Case is discussed with Dr. Wright. - Lab Data Result diagrams: 09/19/21 17:58 09/19/21 17:58 Lab Results 09/19/21 09/19/21 09/19/21 Range/Units 17:58 17:58 17:58 WBC 6.5 (3.8-10.6) k/uL RBC 4.40 (3.80-5.40) m/uL Hgb 12.5 (11.4-16.0) gm/dL Hct 38.8 (34.0-46.0) % MCV 88.2 (80.0-100.0) fL MCH 28.4 (25.0-35.0) pg MCHC 32.2 (31.0-37.0) g/dL RDW 15.4 (11.5-15.5) % Plt Count 269 (150-450) k/uL MPV 9.3 Neutrophils % 69 % Lymphocytes % 16 % Monocytes % 8 % Eosinophils % 2 % Basophils % 1 % Neutrophils # 4.5 (1.3-7.7) k/uL Lymphocytes # 1.0 (1.0-4.8) k/uL Monocytes # 0.5 (0-1.0) k/uL Eosinophils # 0.1 (0-0.7) k/uL Basophils # 0.1 (0-0.2) k/uL PT 10.2 (9.0-12.0) sec INR 0.9 (<1.2) APTT 23.9 (22.0-30.0) sec Sodium 140 (137-145) mmol/L Potassium 3.5 (3.5-5.1) mmol/L Chloride 111 H (98-107) mmol/L Carbon Dioxide 22 (22-30) mmol/L Anion Gap 7 mmol/L BUN 11 (7-17) mg/dL Creatinine 0.67 (0.52-1.04) mg/dL Est GFR (CKD-EPI)AfAm >90 (>60 ml/min/1.73 sqM) Est GFR (CKD-EPI)NonAf 83 (>60 ml/min/1.73 sqM) Glucose 106 H (74-99) mg/dL Plasma Lactic Acid Jude (0.7-2.0) mmol/L Calcium 10.3 H (8.4-10.2) mg/dL Ionized Calcium Parul 5.8 H (4.5-5.3) mg/dL Phosphorus 2.9 (2.5-4.5) mg/dL Magnesium 1.9 (1.6-2.3) mg/dL Total Bilirubin 0.5 (0.2-1.3) mg/dL AST 27 (14-36) U/L ALT 26 (4-34) U/L Alkaline Phosphatase 164 H (38-126) U/L Troponin I (0.000-0.034) ng/mL Total Protein 6.7 (6.3-8.2) g/dL Albumin 3.7 (3.5-5.0) g/dL Urine Color Urine Appearance (Clear) Urine pH (5.0-8.0) Ur Specific [place] (1.001-1.035) Urine Protein (Negative) Urine Glucose (UA) (Negative) Urine Ketones (Negative) Urine Blood (Negative) Urine Nitrite (Negative) Urine Bilirubin (Negative) Urine Urobilinogen (<2.0) mg/dL Ur Leukocyte Esterase (Negative) Urine RBC (0-5) /hpf Urine WBC (0-5) /hpf Ur Squamous Epith Cells (0-4) /hpf Urine Bacteria (None) /hpf Hyaline Casts (0-2) /lpf Urine Mucus (None) /hpf 09/19/21 09/19/21 09/19/21 Range/Units 17:58 17:58 20:10 WBC (3.8-10.6) k/uL RBC (3.80-5.40) m/uL Hgb (11.4-16.0) gm/dL Hct (34.0-46.0) % MCV (80.0-100.0) fL MCH (25.0-35.0) pg MCHC (31.0-37.0) g/dL RDW (11.5-15.5) % Plt Count (150-450) k/uL MPV Neutrophils % % Lymphocytes % % Monocytes % % Eosinophils % % Basophils % % Neutrophils # (1.3-7.7) k/uL Lymphocytes # (1.0-4.8) k/uL Monocytes # (0-1.0) k/uL Eosinophils # (0-0.7) k/uL Basophils # (0-0.2) k/uL PT (9.0-12.0) sec INR (<1.2) APTT (22.0-30.0) sec Sodium (137-145) mmol/L Potassium (3.5-5.1) mmol/L Chloride (98-107) mmol/L Carbon Dioxide (22-30) mmol/L Anion Gap mmol/L BUN (7-17) mg/dL Creatinine (0.52-1.04) mg/dL Est GFR (CKD-EPI)AfAm (>60 ml/min/1.73 sqM) Est GFR (CKD-EPI)NonAf (>60 ml/min/1.73 sqM) Glucose (74-99) mg/dL Plasma Lactic Acid Jude 1.3 (0.7-2.0) mmol/L Calcium (8.4-10.2) mg/dL Ionized Calcium Parul (4.5-5.3) mg/dL Phosphorus (2.5-4.5) mg/dL Magnesium (1.6-2.3) mg/dL Total Bilirubin (0.2-1.3) mg/dL AST (14-36) U/L ALT (4-34) U/L Alkaline Phosphatase (38-126) U/L Troponin I <0.012 (0.000-0.034) ng/mL Total Protein (6.3-8.2) g/dL Albumin (3.5-5.0) g/dL Urine Color Yellow Urine Appearance Cloudy H (Clear) Urine pH 5.5 (5.0-8.0) Ur Specific [place] 1.026 (1.001-1.035) Urine Protein 1+ H (Negative) Urine Glucose (UA) Negative (Negative) Urine Ketones Negative (Negative) Urine Blood Negative (Negative) Urine Nitrite Negative (Negative) Urine Bilirubin Negative (Negative) Urine Urobilinogen <2.0 (<2.0) mg/dL Ur Leukocyte Esterase Moderate H (Negative) Urine RBC 3 (0-5) /hpf Urine WBC 5 (0-5) /hpf Ur Squamous Epith Cells 4 (0-4) /hpf Urine Bacteria Many H (None) /hpf Hyaline Casts 9 H (0-2) /lpf Urine Mucus Few H (None) /hpf Disposition Clinical Impression: Fatigue Disposition: HOME SELF-CARE Condition: Good Instructions (If sedation given, give patient instructions): Fatigue (ED) Additional Instructions: Return to the emergency room with any new or concerning symptoms. Follow-up with your primary care doctor this week. Is patient prescribed a controlled substance at d/c from ED?: No Referrals: None,Stated [Primary Care Provider] - 1-2 days Time of Disposition: 20:43
[2021-09-19 18:20] LABS: Basophils # (A) 0.1 k/uL (0-0.2); Basophils % (A) 1 %; Eosinophils # (A) 0.1 k/uL (0-0.7); Eosinophils % (A) 2 %; HCT 38.8 % (34.0-46.0); HGB 12.5 gm/dL (11.4-16.0); Lymphocytes % (A) 16 %; MCH 28.4 pg (25.0-35.0); MCHC 32.2 g/dL (31.0-37.0); MCV 88.2 fL (80.0-100.0); Mean Platelet Volume 9.3; Monocytes # (A) 0.5 k/uL (0-1.0); Monocytes % (A) 8 %; Neutrophils # (A) 4.5 k/uL (1.3-7.7); Neutrophils % (A) 69 %; Platelet Count 269 k/uL (150-450); RDW 15.4 % (11.5-15.5); WBC 6.5 k/uL (3.8-10.6)
--- NOTE | 2021-09-19 18:25 | XR ---
EXAMINATION TYPE: XR chest 2V DATE OF EXAM: 09/19/2021 COMPARISON: 06/16/2019 HISTORY: Weakness TECHNIQUE: Frontal and lateral views of the chest are obtained. FINDINGS: There is diffuse mild hazy opacity. No pleural effusion, or pneumothorax seen. The cardia c silhouette size is within normal limits. The osseous structures are intact. IMPRESSION: Mild interstitial edema versus atelectasis.
[2021-09-19 18:29] LABS: INR 0.9 (<1.2); Partial Thromboplastin Time 23.9 sec (22.0-30.0); Prothrombin Time 10.2 sec (9.0-12.0)
[2021-09-19 18:32] VITALS: TEMP 98.4
[2021-09-19 18:33] LABS: Ionized Calcium 5.8 mg/dL (4.5-5.3)
[2021-09-19 18:42] LABS: ALT 26 U/L (4-34); AST 27 U/L (14-36); African American GFR (CKD) >90 (>60 ml/min/1.73 sqM); Albumin 3.7 g/dL (3.5-5.0); Alkaline Phosphatase 164 U/L (38-126); Anion Gap 7 mmol/L; Blood Urea Nitrogen 11 mg/dL (7-17); Calcium 10.3 mg/dL (8.4-10.2); Carbon Dioxide 22 mmol/L (22-30); Chloride 111 mmol/L (98-107); Glucose 106 mg/dL (74-99); Magnesium 1.9 mg/dL (1.6-2.3); Non-African American GFR(CKD) 83 (>60 ml/min/1.73 sqM); Phosphorus 2.9 mg/dL (2.5-4.5); Potassium 3.5 mmol/L (3.5-5.1); Sodium 140 mmol/L (137-145); Total Bilirubin 0.5 mg/dL (0.2-1.3); Total Protein 6.7 g/dL (6.3-8.2)
[2021-09-19 20:20] LABS: Appearance,Urine Cloudy (Clear); Bacteria,Urine Many /hpf; Bilirubin,Urine Negative (Negative); Blood,Urine Negative (Negative); Color,Urine Yellow; Glucose,Urine (UA) Negative (Negative); Hyaline Casts,Urine 9 /lpf (0-2); Ketones,Urine Negative (Negative); Leukocyte Esterase,Urine Moderate (Negative); Mucus,Urine Few /hpf; Nitrite,Urine Negative (Negative); PH, Urine 5.5 (5.0-8.0); Protein,Urine 1+ (Negative); RBC,Urine 3 /hpf (0-5); Specific Gravity,Urine 1.026 (1.001-1.035); Squamous Epithelial Cell,Urine 4 /hpf (0-4); Urobilinogen,Urine <2.0 mg/dL (<2.0); WBC,Urine 5 /hpf (0-5)
[2021-09-19 21:00] VITALS: BP 153/78; PULSE 79; RESP 20
== END 2021-09-19 20:55 | disposition home or self-care (01) ==
LOC: EC 14:46
DX: R53.83 Other fatigue (principal); I10 Essential (primary) hypertension; J44.9 Chronic obstructive pulmonary disease, unspecified; E78.5 Hyperlipidemia, unspecified; K21.9 Gastro-esophageal reflux disease without esophagitis; M19.90 Unspecified osteoarthritis, unspecified site; F32.A Depression, unspecified; F41.9 Anxiety disorder, unspecified; F17.200 Nicotine dependence, unspecified, uncomplicated; Z79.82 Long term (current) use of aspirin; Z79.899 Other long term (current) drug therapy
CPT/HCPCS: 36415; 71046; 80053; 81001; 82330; 83605; 83735; 84100; 84484; 85025; 85610; 85730; 93005; 99285

== ENCOUNTER 2023-02-22 10:03 | Day surgery (SDC) | payer MEDICARE ==
[~2023-02-22 10:03] MED LIST: ALPRAZolam 0.25 MG TAB PO PRN; ALPRAZolam 0.5 MG TAB PO PRN; ASPIRIN 325 MG TAB PO PRN; HEPARIN SODIUM,PORCINE 10,000 UNIT in SODIUM CHLORIDE 0.9% 1,000 ML IRRIGATION PRN; HEPARIN SODIUM,PORCINE 2,500 UNIT in SODIUM CHLORIDE 0.9% 250 ML IRRIGATION PRN; SODIUM CHLORIDE 0.9% 1,000 ML in EMPTY BAG 1 BAG IV ONE; ZOLPIDEM 5 MG TAB PO PRN
[2023-02-22] MEDS ORDERED: HYDROmorphone 1 MG/ML 1 ML SYRINGE IVP STA (10:26)
[2023-02-22] MEDS ORDERED: NICOTINE 7MG/24HR PATCH TRANSDERM STA (10:36)
[2023-02-22] MEDS ORDERED: ATROPINE SULFATE 0.1 MG/ML 10ML SYRINGE ONE ×2 (10:45→17:33)
[2023-02-22 10:58] LABS: Basophils # (A) 0.1 k/uL (0-0.2); Basophils % (A) 1 %; Eosinophils # (A) 0.5 k/uL (0-0.7); Eosinophils % (A) 6 %; HCT 39.7 % (34.0-46.0); HGB 12.8 gm/dL (11.4-16.0); Lymphocytes # (A) 1.5 k/uL (1.0-4.8); Lymphocytes % (A) 20 %; MCH 31.8 pg (25.0-35.0); MCHC 32.2 g/dL (31.0-37.0); MCV 98.7 fL (80.0-100.0); Mean Platelet Volume 9.9; Monocytes # (A) 0.4 k/uL (0-1.0); Monocytes % (A) 5 %; Neutrophils # (A) 4.9 k/uL (1.3-7.7); Neutrophils % (A) 64 %; Platelet Count 222 k/uL (150-450); RBC 4.02 m/uL (3.80-5.40); RDW 14.8 % (11.5-15.5); WBC 7.7 k/uL (3.8-10.6)
[2023-02-22 11:06] LABS: African American GFR (CKD) 80 (>60 ml/min/1.73 sqM); Anion Gap 7 mmol/L; Blood Urea Nitrogen 16 mg/dL (7-17); Calcium 9.5 mg/dL (8.4-10.2); Carbon Dioxide 21 mmol/L (22-30); Chloride 110 mmol/L (98-107); Glucose 92 mg/dL (74-99); Non-African American GFR(CKD) 70 (>60 ml/min/1.73 sqM); Sodium 138 mmol/L (137-145)
[2023-02-22] MEDS ORDERED: LIDOCAINE 1% INJ 10MG/ML (20 ML MDV) SQ ONE (11:09)
[2023-02-22 11:11] LABS: Potassium 4.3 mmol/L (3.5-5.1)
[2023-02-22] MEDS: MIDAZOLAM 2 MG/2 ML VIAL IV ONE ×2 (11:16→12:09)
[2023-02-22] MEDS: HEPARIN SODIUM 1,000 UN/ML (10ML VL) IV ONE ×2 (11:36→12:02)
[2023-02-22] MEDS: fentaNYL (PF) 50 MCG/ML 2 ML AMP IV ONE ×2 (12:21→13:35)
[2023-02-22] MEDS ORDERED: niCARdipine Syringe (1,000 mcg/10 mL) INTRAARTER ONE ×2 (12:34→13:01)
[2023-02-22] MEDS ORDERED: CLOPIDOGREL 75 MG TAB PO ONE (13:01)
[2023-02-22] MEDS ORDERED: NITROGLYCERIN 1000MCG/10ML SYRINGE INTRAARTER ONE (13:09)
[2023-02-22] MEDS ORDERED: NON FORMULARY DRUG (Acetaminophen/Diphenhydramine [Tylenol Pm 500-25mg] 1 EACH Tablet) PO PRN (13:41)
[2023-02-22] MEDS ORDERED: IOPAMIDOL-250 100ML BTL INTRAARTER ONE (13:43)
[2023-02-22] MEDS ORDERED: NALOXONE 0.4 MG/ML 1 ML VIAL IVP PRN (13:43)
[2023-02-22] MEDS ORDERED: SODIUM CHLORIDE 0.9% 1,000 ML in EMPTY BAG 1 BAG IV SCH (13:45)
[2023-02-22] MEDS ORDERED: FUROSEMIDE 10 MG/ML 2 ML VIAL IV ONE ×2 (14:10→16:24)
[2023-02-22] MEDS ORDERED: FUROSEMIDE 10 MG/ML 4 ML VIAL ONE (14:13)
--- NOTE | 2023-02-22 14:47 | IR ---
EXAMINATION TYPE: IR stent intravas non coronary DATE OF EXAM: 02/22/2023 COMPARISON: NONE HISTORY: Fluoroscopy time. Fluoroscopy was provided to the referring clinician.
[2023-02-22] MEDS ORDERED: FUROSEMIDE 10 MG/ML 2 ML VIAL IV STA (16:22)
[2023-02-22] MEDS: PREGABALIN 75 MG CAP PO SCH ×2 (16:42→20:10)
--- NOTE | 2023-02-22 23:15 | P.PCN ---
Date of Procedure: 02/22/23 Operative Findings: Percutaneous peripheral arterial intervention Performing physician Griffin Medeiros MD Procedure performed 1. Successful balloon angioplasty and stenting of the right SFA and right popliteal 2. Intravascular ultrasound of the right SFA and right popliteal 3. Right lower extremity angiogram and left common femoral artery angiogram Indication Critical limb ischemia of the right foot for this 82-year-old female patient who underwent an angiogram and that revealed occluded right SFA and occluded right popliteal and occluded 3 vessels below the knee as well. Approach Left common femoral artery Complications None Level of sedation Moderate sedation length of at least 2 hours Procedure description After obtaining an informed consent the patient was brought to the cardiac Load Checker. The left common femoral artery was cannulated using micropuncture technique, the micropuncture wire passed easily in a place a 6 Vincentian 70 cm at the right common femoral artery. Subsequently I did select the right SFA using a 035 stiff Glidewire with the backup support of 5 Vincentian rim catheter and subsequently the sheath was advanced over the wire and the catheter to the right common femoral artery. The right lower extremity angiogram at that point was performed with injection of contrast through the sheath and that showed extensive disease on the right side with occluded right SFA and occluded right popliteal as well as occluded anterior tibial and posterior tibial and peroneal. At that point anticoagulation was initiated using heparin with continuous ECG monitoring. Then I was able to cross the chronic total occlusion of the right SFA and right popliteal using 018 wire. The wire was advanced all the way to the popliteal below the knee. Subsequently I did intravascular ultrasound which showed that I was in subintimal space most of the time and for that reason I decided not to do an atherectomy. I did balloon angioplasty initially using 2 mm balloon for below the knee and then 4 mm balloon for [id number] popliteal and SFA on the right side. The following angiogram showed inadequate angiographic results was no flow. At that point I decided to upsize the balloon to 5 mm in the right SFA and also to 2.5 mm below the knee on the right side. Subsequently an angiogram was performed and continues to show inadequate angiographic results. At that point I decided to stent the area of the right popliteal and right SFA where I was in the subintimal space. So distally I deployed a 6.0 x 140 and proximal to that I deployed 7.0 x 140 mm over PT Zilver coated stent. The stents were positioned under fluoroscopy guidance and deployed under fluoroscopy guidance was postdilatation was performed after that. An angiogram at that point showed that the flow in the right SFA appeared to be good but below the knee popliteal has a critical lesion with dissection appeared to be flow-limiting which I decided to stent. At that point I deployed in the right popliteal below the knee 5.0 x 40 mm self expandable stent where the stent was positioned under fluoroscopy guidance and deployed under fluoroscopy guidance. Postdilatation was performed using 4 mm balloon. Finally I was able to see flow below the knee on the right side. At that point I decided to stop. The patient need to be addressed for any inflow disease in the right iliac as well as we need to address if we can go through below the knee arteries on the right side. Subsequently I did exchange my long sheath into short she is using 035 wire before I did selective right common femoral artery angiogram with injection through the sheath. The procedure was completed was no complication
[2023-02-23] MEDS ORDERED: MORPHINE SULFATE 2 MG/ML SYRINGE IVP STA (01:21)
[2023-02-23] MEDS ORDERED: PANTOPRAZOLE 40 MG TABLET PO SCH (07:30)
[2023-02-23] MEDS: PREGABALIN 75 MG CAP PO SCH ×2 (07:34→12:08)
[2023-02-23 07:41] LABS: Basophils # (A) 0.1 k/uL (0-0.2); Basophils % (A) 1 %; Eosinophils # (A) 0.3 k/uL (0-0.7); Eosinophils % (A) 2 %; HCT 39.7 % (34.0-46.0); HGB 12.6 gm/dL (11.4-16.0); Lymphocytes # (A) 1.1 k/uL (1.0-4.8); Lymphocytes % (A) 10 %; MCH 31.5 pg (25.0-35.0); MCHC 31.7 g/dL (31.0-37.0); MCV 99.3 fL (80.0-100.0); Mean Platelet Volume 9.3; Monocytes # (A) 0.6 k/uL (0-1.0); Monocytes % (A) 5 %; Neutrophils # (A) 9.5 k/uL (1.3-7.7); Neutrophils % (A) 80 %; Platelet Count 202 k/uL (150-450); RBC 3.99 m/uL (3.80-5.40); RDW 14.9 % (11.5-15.5); WBC 11.9 k/uL (3.8-10.6)
[2023-02-23 07:57] LABS: African American GFR (CKD) 70 (>60 ml/min/1.73 sqM); Anion Gap 8 mmol/L; Blood Urea Nitrogen 14 mg/dL (7-17); Calcium 9.3 mg/dL (8.4-10.2); Carbon Dioxide 22 mmol/L (22-30); Chloride 107 mmol/L (98-107); Glucose 110 mg/dL (74-99); Non-African American GFR(CKD) 61 (>60 ml/min/1.73 sqM); Potassium 3.8 mmol/L (3.5-5.1); Sodium 137 mmol/L (137-145)
[2023-02-23] MEDS ORDERED: SYMBICORT 80-4.5 MCG INHALER INHALATION SCH (08:00)
[2023-02-23] MEDS ORDERED: ATORVASTATIN 40 MG TAB PO SCH (09:00)
[2023-02-23] MEDS ORDERED: ASPIRIN 325 MG TAB PO SCH (09:00)
[2023-02-23] MEDS ORDERED: NON FORMULARY DRUG (Omega-3 Fatty Acids [Omega-3] 1,000 MG Capsule) PO SCH (09:00)
[2023-02-23] MEDS ORDERED: ASCORBIC ACID 500 MG TAB PO SCH (09:00)
[2023-02-23] MEDS ORDERED: MULTIVITAMINS, THERA 1 EACH TAB PO SCH (09:00)
[2023-02-23] MEDS ORDERED: CLOPIDOGREL 75 MG TAB PO SCH (09:00)
[2023-02-23] MEDS ORDERED: SERTRALINE 25 MG TAB PO SCH (09:00)
[2023-02-23] MEDS ORDERED: CALCIUM CARBONATE 500 MG CHEWABLE PO SCH (09:00)
[2023-02-23] MEDS: IPRATROPIUM 0.5 MG/2.5 ML NEBU INHALATION SCH ×2 (09:02→11:47)
[2023-02-23 11:12] VITALS: BP 112/66; PULSE 86; RESP 16; TEMP 98.7
== END 2023-02-23 12:14 | disposition home or self-care (01) ==
LOC: CATHCVL 10:03 → 3SCARD 13:39 → CATHCVL 02-23 12:14
PROVIDERS: ATTEND Internal Medicine Interventional Cardiology
DX: I70.213 Atherosclerosis of native arteries of extremities with intermittent claudication, bilateral legs (principal)
CPT/HCPCS: 94640 ×2; 37226; 37252; 80048 ×2; 85025 ×2; C1769 ×6; C1894 ×2; C1725 ×4; C1753; C1876; C1874; S4990; J2250; J1940; J2001; J3010; J2270; J1644; J1170; Q9966

== ENCOUNTER 2023-03-28 10:46 | Observation (INO) | payer MEDICARE ==
[2023-03-26 16:03] VITALS: BMI 20.6
[~2023-03-28 10:46] MED LIST changes: -ALPRAZolam 0.5 MG TAB PO PRN; -ASPIRIN 325 MG TAB PO PRN; -HEPARIN SODIUM,PORCINE 10,000 UNIT in SODIUM CHLORIDE 0.9% 1,000 ML IRRIGATION PRN; -HEPARIN SODIUM,PORCINE 2,500 UNIT in SODIUM CHLORIDE 0.9% 250 ML IRRIGATION PRN; -ZOLPIDEM 5 MG TAB PO PRN
[2023-03-28 11:37] LABS: African American GFR (CKD) 78 (>60 ml/min/1.73 sqM); Anion Gap 8 mmol/L; Blood Urea Nitrogen 14 mg/dL (7-17); Carbon Dioxide 22 mmol/L (22-30); Chloride 108 mmol/L (98-107); Glucose 98 mg/dL (74-99); Non-African American GFR(CKD) 67 (>60 ml/min/1.73 sqM); Potassium 4.5 mmol/L (3.5-5.1); Sodium 138 mmol/L (137-145)
[2023-03-28 11:46] LABS: Basophils # (A) 0.1 k/uL (0-0.2); Basophils % (A) 1 %; Eosinophils # (A) 0.4 k/uL (0-0.7); Eosinophils % (A) 6 %; HGB 8.2 gm/dL (11.4-16.0); Hypochromasia Marked; Lymphocytes # (A) 1.5 k/uL (1.0-4.8); Lymphocytes % (A) 22 %; MCH 28.5 pg (25.0-35.0); MCHC 30.4 g/dL (31.0-37.0); Monocytes # (A) 0.3 k/uL (0-1.0); Monocytes % (A) 5 %; Neutrophils # (A) 4.3 k/uL (1.3-7.7); Neutrophils % (A) 62 %; Platelet Count 321 k/uL (150-450); Poikilocytosis Slight; RBC 2.88 m/uL (3.80-5.40); RDW 14.9 % (11.5-15.5); WBC 6.9 k/uL (3.8-10.6)
[2023-03-28 11:47] LABS: MCV 93.6 fL (80.0-100.0)
[2023-03-28] MEDS ORDERED: LIDOCAINE 1% INJ 10MG/ML (20 ML MDV) ONE ×2 (13:15→14:36)
[2023-03-28] MEDS ORDERED: HEPARIN SODIUM 1,000 UN/ML (10ML VL) ONE (13:25)
[2023-03-28] MEDS ORDERED: MIDAZOLAM 2 MG/2 ML VIAL IVP ONE ×2 (13:36→14:37)
[2023-03-28] MEDS ORDERED: LIDOCAINE 1% INJ 10MG/ML (20 ML MDV) SQ ONE (13:37)
[2023-03-28] MEDS ORDERED: HYDROmorphone 0.5 MG/0.5 ML SYRINGE IVP ONE ×3 (13:40→15:09)
[2023-03-28] MEDS ORDERED: HEPARIN SODIUM 1,000 UN/ML (10ML VL) IV ONE ×2 (13:49→15:00)
[2023-03-28] MEDS ORDERED: SODIUM CHLORIDE 0.9% 500 ML 500 ML with niCARdipine 6.25 MG, NITROGLYCERIN-D5W PMX 0.05... IV ONE ×4 (14:15)
[2023-03-28] MEDS ORDERED: NITROGLYCERIN 1000MCG/10ML SYRINGE INTRAARTER ONE (15:22)
[2023-03-28] MEDS ORDERED: niCARdipine Syringe (1,000 mcg/10 mL) INTRAARTER ONE (15:22)
[2023-03-28] MEDS ORDERED: SODIUM CHLORIDE 0.9% 1,000 ML IV ONE (15:27)
[2023-03-28] MEDS ORDERED: NALOXONE 0.4 MG/ML 1 ML VIAL IVP PRN (15:32)
[2023-03-28] MEDS ORDERED: ACETAMINOPHEN TAB 500 MG TAB PO PRN (15:32)
[2023-03-28] MEDS ORDERED: IOPAMIDOL-370 100ML BTL INJ ONE (15:35)
[2023-03-28] MEDS ORDERED: SODIUM CHLORIDE 0.9% 1,000 ML in EMPTY BAG 1 BAG IV SCH (15:45)
[2023-03-28] MEDS ORDERED: diphenhydrAMINE 25 MG CAP PO PRN (17:11)
[2023-03-28] MEDS ORDERED: ONDANSETRON 4 MG/2 ML VIAL IVP STA (17:43)
[2023-03-28] MEDS ORDERED: ONDANSETRON 4 MG/2 ML VIAL IVP PRN (17:43)
[2023-03-28] MEDS ORDERED: ATROPINE SULFATE 0.1 MG/ML 10ML SYRINGE ONE (18:56)
[2023-03-28] MEDS ORDERED: NON FORMULARY DRUG (Zinc Gluconate 50 MG Tab) PO SCH (21:00)
--- NOTE | 2023-03-28 21:47 | P.PCN ---
Date of Procedure: 03/28/23 Operative Findings: PERCUTANEOUS PERIPHERAL INTERVENTION Performing physician Griffin Medeiros M.D. Procedure performed 1. Successful angioplasty and stenting of the right anterior tibial artery 2. Adjunctive use of intravascular ultrasound 3. Right lower extremity angiogram 4. Ultrasound guided accessing of the left common femoral artery and right anterior TPL artery 5. Selective left common femoral artery angiogram 6. The procedure was long and complex procedure Indication Critical limb ischemia of the right foot in this 82-year-old female patient was underwent an angiogram and that showed occluded right SFA and right popliteal and occluded 3 vessels below the knee including anterior tibial and posterior tibial and peroneal. The patient underwent PTCA of the right SFA and right popliteal and she was brought today to undergo a SAP DIRECTOR of the right anterior tibial artery Approach Left common femoral artery Complications None Level of sedation Moderate with a sedation time of 120 minutes Procedure description After obtaining an informed consent the patient was brought to the cardiac rn labor and delivery. The left common femoral artery was cannulated using micropuncture technique under ultrasound guidance the micropuncture wire passed easily then I placed 6-Argentine 70 cm sheath at the left common femoral artery. Please note that the artery was predilated using 6-Argentine dilator. Subsequently I did selective the right femoral artery using 035 stiff Glidewire with a backup support of 5-Argentine rim catheter and then the long sheath was advanced over the wire and the catheter to the proximal right common femoral artery. At that poi nt anticoagulation was initiated using heparin with continuous ACT monitoring. Subsequently I did right lower extremity angiogram which showed patent right SFA and right popliteal which we did balloon angioplasty before. Arteries below the knee including the anterior tibial and posterior tibial and peroneal with occluded. Attempting crossing chronic total occlusion of the right anterior tibial was unsuccessful in antegrade technique using 014 wire and 018 wire and 035 wire. At that point I decided to attempt crossing the lesion using retrograde technique. At that point I accessed the right anterior tibial artery using micropuncture technique under ultrasound guidance then I placed a slender 5/6-Argentine sheath. The right anterior tibial artery with the SideArm of the sheath was connected into a cocktail consistent off heparin and verapamil and nitroglycerin. Subsequently I attempted crossing the chronic total occlusion of the proximal anterior tibial artery using 014 wire but I was unsuccessful then using 018 wire and also I was unsuccessful. I left the wire in place then I attempted to cross from above in antegrade fashion and with that I was able to advance the wire to the true lumen all the way to the distal right anterior tibial artery. I pulled the wire out after I advanced the catheter then I injected contrast to move that I was in the room was in the true lumen. Subsequently I left the wire in place and I did intravascular ultrasound that showed that I was again in the true lumen all the way. Subsequently I did angioplasty using 3 mm balloon which showed good angiographic results except for the proximal cap the anterior tibial artery. I decided to stent that. I deployed a coronary stent that was 3.0 x 28 mm stent where the stent was positioned under fluoroscopy guidance and deployed under fluoroscopy guidance with the following angiogram showing good angiographic results and the procedure at that point was completed was no complication. Finally I did selective left common femoral artery angiogram after I exchanged my long sheath into short sheath using 035 stiff Glidewire. The procedure was completed was no complication Postprocedure management 1. Dual antiplatelet therapy 2. Aggressive cholesterol control 3. Risk factors modification 4. Follow-up with the patient
[2023-03-29] MEDS: SYMBICORT 80-4.5 MCG INHALER INHALATION SCH ×3 (07:54→22:20)
[2023-03-29] MEDS: IPRATROPIUM 0.5 MG/2.5 ML NEBU INHALATION SCH ×5 (07:54→22:20)
[2023-03-29] MEDS: PANTOPRAZOLE 40 MG TABLET PO SCH (08:21)
[2023-03-29] MEDS: ASPIRIN 81 MG PO SCH (08:21)
[2023-03-29] MEDS: CLOPIDOGREL 75 MG TAB PO SCH (08:21)
[2023-03-29] MEDS: buPROPion XL 150 MG TAB.ER.24H PO SCH (08:21)
[2023-03-29 08:31] LABS: African American GFR (CKD) 84 (>60 ml/min/1.73 sqM); Non-African American GFR(CKD) 73 (>60 ml/min/1.73 sqM)
[2023-03-29 09:23] LABS: Basophils # (A) 0.1 k/uL (0-0.2); Basophils % (A) 1 %; Eosinophils # (A) 0.3 k/uL (0-0.7); Eosinophils % (A) 5 %; Hypochromasia Marked; Lymphocytes # (A) 1.1 k/uL (1.0-4.8); Lymphocytes % (A) 16 %; MCH 29.1 pg (25.0-35.0); MCHC 30.5 g/dL (31.0-37.0); MCV 95.4 fL (80.0-100.0); Mean Platelet Volume 9.3; Monocytes # (A) 0.3 k/uL (0-1.0); Monocytes % (A) 5 %; Neutrophils # (A) 4.7 k/uL (1.3-7.7); Neutrophils % (A) 71 %; Platelet Count 240 k/uL (150-450); Poikilocytosis Slight; RBC 2.03 m/uL (3.80-5.40); RDW 14.8 % (11.5-15.5); WBC 6.7 k/uL (3.8-10.6)
[2023-03-29 10:00] LABS: HCT 19.3 % (34.0-46.0); HGB 5.9 gm/dL (11.4-16.0)
[2023-03-29] MEDS ORDERED: FUROSEMIDE 10 MG/ML 4 ML VIAL IV STA (10:18)
[2023-03-29 10:20] LABS: Basophils % (A) 0 %; Eosinophils # (A) 0.3 k/uL (0-0.7); Eosinophils % (A) 4 %; HCT 20.3 % (34.0-46.0); Hypochromasia Marked; Lymphocytes # (A) 1.1 k/uL (1.0-4.8); Lymphocytes % (A) 16 %; MCH 28.5 pg (25.0-35.0); MCHC 30.1 g/dL (31.0-37.0); MCV 94.8 fL (80.0-100.0); Mean Platelet Volume 9.1; Monocytes # (A) 0.3 k/uL (0-1.0); Monocytes % (A) 4 %; Neutrophils # (A) 4.9 k/uL (1.3-7.7); Neutrophils % (A) 72 %; Platelet Count 253 k/uL (150-450); Poikilocytosis Slight; RBC 2.14 m/uL (3.80-5.40); RDW 14.8 % (11.5-15.5); WBC 6.8 k/uL (3.8-10.6)
[2023-03-29 10:27] LABS: HGB 6.1 gm/dL (11.4-16.0)
--- NOTE | 2023-03-29 10:43 | IR ---
EXAMINATION TYPE: IR stent intravas non coronary DATE OF EXAM: 03/28/2023 COMPARISON: NONE HISTORY: Fluoroscopy time. Fluoroscopy was provided to the referring clinician.
--- NOTE | 2023-03-29 11:54 | P.PN ---
Progress Note - Text Progress Note Date: 03/29/23 This is a very pleasant 82-year-old female patient with severe lower extremities PAD with prior angioplasty of the right SFA and right popliteal and known occluded 3 vessels below the knee on the right side who was admitted to the hospital yesterday and underwent successful recanalizing occluded right anterior tibial artery from left groin approach and right anterior tibial approach. March [id number] The patient was seen and evaluated this morning. She is asymptomatic. She seems to be pale on examination. The left groin appeared to be soft and nontender with no bruises. The right anterior tibial site appeared to be good as well. The right foot is warm with a very faint dorsalis pedis pulse. We did perform a blood work on her including a hemoglobin and that came in to be around 6 and repeated again and continues to be low. I ordered 2 units of packed RBC to be given meanwhile I am going to perform a computed tomography scan of the abdomen and pelvis just to rule out retroperitoneal bleeding. The left common femoral artery stick was not very high yesterday. Meanwhile she is on dual antiplatelet therapy which we will continue for now. Also we are going to rule out gastrointestinal bleeding by performing and assessing for any blood in the stool. The patient was informed and updated that she is going to stay overnight. We will continue monitor the hemoglobin. Consult internal medicine if we have to. Follow-up with the patient.
[2023-03-29] MEDS ORDERED: FUROSEMIDE 10 MG/ML 2 ML VIAL IV ONE (12:00)
--- NOTE | 2023-03-29 12:38 | CT ---
EXAMINATION TYPE: CT abdomen pelvis wo con CT DLP: 376.9 mGycm, Automated exposure control for dose reduction was used. DATE OF EXAM: 03/29/2023 12:24 PM COMPARISON: CT abdomen pelvis most recent from 07/14/2019. CLINICAL INDICATION:Female, 82 years old with history of rule out bleed; Rule out bleed TECHNIQUE: Standard CT of the abdomen and pelvis without IV or oral contrast. Lack of IV or oral co ntrast limits evaluation of solid and hollow organ viscera. Coronal and sagittal reformats were perfo rmed. FINDINGS: LOWER CHEST: Small left and trace right pleural effusions. Regions of linear atelectasis and/or scarr ing within both lung bases. ABDOMEN LIVER: Punctate calcification identified within the right hepatic lobe. GALLBLADDER AND BILE DUCTS: The gallbladder is surgically absent. No biliary ductal dilatation. PANCREAS: Unremarkable. SPLEEN: Unremarkable. ADRENAL GLANDS: Unremarkable. KIDNEYS AND URETERS: No evidence of hydronephrosis or renal calculus. The ureters are unremarkable. PELVIS BLADDER: Urinary bladder is contrast-filled likely from prior contrast study. REPRODUCTIVE: The uterus is surgically absent. ABDOMEN & PELVIS STOMACH AND BOWEL: Periampullary duodenal diverticulum. No focal bowel wall thickening or surrounding inflammatory changes. No evidence of bowel obstruction. PERITONEUM/RETROPERITONEUM: No evidence of pneumoperitoneum or free fluid. VASCULATURE: Moderate atherosclerotic calcification of the aorta and its branches. Tortuosity of the abdominal aorta. MUSCULOSKELETAL: No acute osseous abnormalities. Postsurgical changes from left total hip arthroplast y. Osteoarthritic changes of the right hip. Scoliotic curvature of the thoracic lumbar spine. Multile karin degenerative changes of the thoracolumbar spine. LYMPH NODES: No gross evidence for lymphadenopathy. SOFT TISSUE/ABDOMINAL WALL: There is stranding within the left inguinal region from vascular access w ithout evidence for hematoma. IMPRESSION: 1. No acute abdominal/pelvic process or hemorrhage. 2. Small left and trace right pleural effusions.
[2023-03-30 00:10] LABS: Basophils # (A) 0.1 k/uL (0-0.2); Basophils % (A) 1 %; Eosinophils # (A) 0.3 k/uL (0-0.7); Eosinophils % (A) 3 %; HCT 28.7 % (34.0-46.0); Hypochromasia Moderate; Lymphocytes # (A) 1.3 k/uL (1.0-4.8); Lymphocytes % (A) 15 %; MCH 31.2 pg (25.0-35.0); MCHC 34.5 g/dL (31.0-37.0); MCV 90.4 fL (80.0-100.0); Mean Platelet Volume 9.5; Monocytes # (A) 0.5 k/uL (0-1.0); Monocytes % (A) 5 %; Neutrophils # (A) 6.2 k/uL (1.3-7.7); Neutrophils % (A) 72 %; Platelet Count 227 k/uL (150-450); Poikilocytosis Moderate; RBC 3.18 m/uL (3.80-5.40); RDW 15.2 % (11.5-15.5); WBC 8.6 k/uL (3.8-10.6)
[2023-03-30 00:17] LABS: HGB 9.9 gm/dL (11.4-16.0)
[2023-03-30 07:51] VITALS: TEMP 98.2
[2023-03-30] MEDS: IPRATROPIUM 0.5 MG/2.5 ML NEBU INHALATION SCH ×2 (07:53→11:06)
[2023-03-30] MEDS: SYMBICORT 80-4.5 MCG INHALER INHALATION SCH (07:53)
[2023-03-30] MEDS: CLOPIDOGREL 75 MG TAB PO SCH (08:01)
[2023-03-30] MEDS: buPROPion XL 150 MG TAB.ER.24H PO SCH (08:01)
[2023-03-30] MEDS: PANTOPRAZOLE 40 MG TABLET PO SCH (08:01)
[2023-03-30] MEDS: ASPIRIN 81 MG PO SCH (08:01)
[2023-03-30 11:55] VITALS: BP 141/65; PULSE 83; RESP 16
--- NOTE | 2023-03-30 12:04 | P.DS ---
Providers Date of admission: 03/29/23 14:33 Attending physician: Griffin Medeiros Primary care physician: [facility] Course: The patient is an 82-year-old female patient who underwent 2 days ago successful recanalizing occluded anterior tibial artery from left groin approach and right anterior tibial approach. She was seen yesterday and she was pale on examination. Hemoglobin was drawn and came in to be low and subsequently the patient received 2 units of packed RBC. She was seen and evaluated today. She is asymptomatic and stable. The repeated hemoglobin came in to be above 9. She was receiving triple therapy including aspirin and Plavix as rales toe. I'm going to stop the Plavix and going with aspirin and 0 toe. A prescription to have her hemoglobin checked in the next 24-48 hours was given to her. The patient otherwise is going to be discharged home. Plan - Discharge Summary Discharge Rx Participant: No New Discharge Prescriptions: Continue RX: Omeprazole [PriLOSEC] 20 mg PO QAM RX: Umeclidinium [place] [Incruse Ellipta] 1 puff INHALATION RT-DAILY RX: Acetaminophen/Diphenhydramine [Tylenol PM 500-25mg] 1 tab PO HS PRN PRN Reason: PAIN/SLEEP RX: Fluticasone/Vilanterol [Breo Ellipta 100-25 Mcg Inhaler] 1 puff INHALATION RT-DAILY RX: Aspirin 81 mg PO DAILY #90 tab RX: Rivaroxaban [Xarelto] 2.5 mg PO BID #60 tablet RX: Zinc Gluconate [Zinc] 30 mg PO BID RX: buPROPion HCL [buPROPion HCL Xl] 150 mg PO DAILY Discontinued Clopidogrel [Plavix] 75 mg PO DAILY #90 tablet Discharge Medication List RX: Omeprazole [PriLOSEC] 20 mg PO QAM 06/16/19 [History] RX: Acetaminophen/Diphenhydramine [Tylenol PM 500-25mg] 1 tab PO HS PRN 09/19/21 [History] RX: Fluticasone/Vilanterol [Breo Ellipta 100-25 Mcg Inhaler] 1 puff INHALATION RT-DAILY 09/19/21 [History] RX: Umeclidinium [place] [Incruse Ellipta] 1 puff INHALATION RT-DAILY 09/19/21 [History] RX: Aspirin 81 mg PO DAILY #90 tab 02/23/23 [Rx] RX: Rivaroxaban [Xarelto] 2.5 mg PO BID #60 tablet 02/23/23 [Rx] RX: Zinc Gluconate [Zinc] 30 mg PO BID 03/26/23 [History] RX: buPROPion HCL [buPROPion HCL Xl] 150 mg PO DAILY 03/26/23 [History] Follow up Appointment(s)/Referral(s): Griffin Medeiros MD [STAFF PHYSICIAN] - 1 Week Cornel Balderrama Jr, DO [Primary Care Provider] - 04/11/23 11:30 am Patient Instructions/Handouts: Peripheral Vascular Angioplasty (DC), Angiography (DC)
== END 2023-03-30 12:56 | disposition home or self-care (01) ==
LOC: CATHCVL 10:46 → 3SCARD 16:38 → CATHCVL 03-29 14:31 → 3SCARD 03-29 14:33
PROVIDERS: ADMIT Internal Medicine Interventional Cardiology; ATTEND Internal Medicine Interventional Cardiology
DX: I70.221 Atherosclerosis of native arteries of extremities with rest pain, right leg (principal); F17.200 Nicotine dependence, unspecified, uncomplicated; I10 Essential (primary) hypertension; E78.5 Hyperlipidemia, unspecified; Z79.899 Other long term (current) drug therapy; Z79.82 Long term (current) use of aspirin; Z82.49 Family history of ischemic heart disease and other diseases of the circulatory system
CPT/HCPCS: 36430 ×2; 94640 ×4; 37230; 37252; 86900; 86901; 80048; 82565; 85025 ×2; 86850; 86920; 74176; G0378 ×2; C1894 ×2; C1769 ×6; C1887; C1753; C1725; C1874; P9016; J2250; J1940; J2405; J2001; J1644 ×2; J1170; Q9967

== ENCOUNTER 2023-06-12 08:44 | Day surgery (SDC) | payer MEDICARE ==
[~2023-06-12 08:44] MED LIST changes: +ALPRAZolam 0.5 MG TAB PO PRN; +ASPIRIN 325 MG TAB PO PRN; +HEPARIN SODIUM,PORCINE (1 ML) 2,500 UNIT in SODIUM CHLORIDE 0.9% 250 ML IRRIGATION PRN; +HEPARIN SODIUM,PORCINE 10,000 UNIT in SODIUM CHLORIDE 0.9% 1,000 ML IRRIGATION PRN; +ZOLPIDEM 5 MG TAB PO PRN
[2023-06-12 09:27] VITALS: RESP 18; TEMP 97.9
[2023-06-12] MEDS ORDERED: ASPIRIN 81 MG PO ONE (09:30)
[2023-06-12] MEDS ORDERED: CLOPIDOGREL 75 MG TAB PO ONE (09:30)
[2023-06-12 09:31] LABS: Anisocytosis Slight; Basophils # (A) 0.1 k/uL (0-0.2); Basophils % (A) 1 %; Eosinophils # (A) 0.4 k/uL (0-0.7); Eosinophils % (A) 4 %; HCT 33.2 % (34.0-46.0); HGB 9.8 gm/dL (11.4-16.0); Hypochromasia Marked; Lymphocytes # (A) 1.4 k/uL (1.0-4.8); Lymphocytes % (A) 15 %; MCH 23.5 pg (25.0-35.0); MCHC 29.4 g/dL (31.0-37.0); Mean Platelet Volume 7.5; Monocytes # (A) 0.4 k/uL (0-1.0); Monocytes % (A) 5 %; Neutrophils # (A) 6.3 k/uL (1.3-7.7); Neutrophils % (A) 71 %; Platelet Count 369 k/uL (150-450); RBC 4.15 m/uL (3.80-5.40); RDW 16.2 % (11.5-15.5); WBC 8.9 k/uL (3.8-10.6)
[2023-06-12 09:43] LABS: African American GFR (CKD) >90 (>60 ml/min/1.73 sqM); Anion Gap 10 mmol/L; Blood Urea Nitrogen 13 mg/dL (7-17); Calcium 10.3 mg/dL (8.4-10.2); Carbon Dioxide 22 mmol/L (22-30); Chloride 107 mmol/L (98-107); Glucose 111 mg/dL (74-99); Non-African American GFR(CKD) 82 (>60 ml/min/1.73 sqM); Potassium 4.4 mmol/L (3.5-5.1); Sodium 139 mmol/L (137-145)
[2023-06-12] MEDS ORDERED: MIDAZOLAM 2 MG/2 ML VIAL IVP ONE ×2 (10:30→10:40)
[2023-06-12] MEDS ORDERED: LIDOCAINE 1% INJ 10MG/ML (30 ML VIAL-PF) SQ ONE (10:33)
[2023-06-12] MEDS ORDERED: HYDROmorphone 0.5 MG/0.5 ML SYRINGE IVP ONE (10:41)
[2023-06-12] MEDS ORDERED: IOPAMIDOL-250 100ML BTL INTRAARTER ONE (10:47)
[2023-06-12] MEDS ORDERED: NALOXONE 0.4 MG/ML 1 ML VIAL IVP PRN (10:52)
[2023-06-12] MEDS ORDERED: SODIUM CHLORIDE 0.9% 1,000 ML in EMPTY BAG 1 BAG IV SCH (11:00)
--- NOTE | 2023-06-12 11:11 | P.PCN ---
Date of Procedure: 06/12/23 Operative Findings: AN ABDOMINAL AORTOGRAM AND BILATERAL LOWER EXTREMITIES RUNOFF PERFORMING PHYSICIAN: Griffin Medeiros MD PROCEDURE PERFORMED: 1. An abdominal aortogram 2. Bilateral lower extremities runoff 3. Ultrasound-guided access of the right common femoral artery INDICATION: Intermittent claudication in this 82-year-old female patient was known to have PAD and she underwent recently an arterial duplex study showed severe disease involving the left SFA/popliteal on the left side COMPLICATION: None LEVEL OF SEDATION: Moderate was sedation length of 14 minutes APPROACH: Right common femoral artery PROCEDURE DESCRIPTION: After obtaining informed consent and explaining the procedure benefits, risks, and complications, the patient was brought to the cardiac manager laboratory. The right groin was prepped and draped in sterile fashion. The right common femoral artery was cannulated using micropuncture technique, under ultrasound guidance. A micropuncture wire was advanced, and the micropuncture sheath was advanced over the wire, then the micropuncture sheath was exchanged over an 0.35 wire into a 5-Welsh sheath dilator assembly then the wire and dilator were removed and sheath was flushed. We did an abdominal aortogram and bilateral lower extremities runoff using 5- Welsh pigtail catheter using a power injection. The catheter was initially placed at the level of the renal arteries, and it was pulled into above the bifurcation of the aorta into right and left common iliac arteries. The procedure was completed and there was no complications. SELECTIVE PERIPHERAL ANGIOGRAM: The abdominal aorta: Tortuous was mild disease only The common iliac arteries: The right and left common iliac arteries appears to have mild disease only. The external iliac arteries: The right and left external appears to have mild disease only. The internal iliac arteries: Both internal iliacs appeared to be occluded The common femoral arteries: The right common femoral artery appears to have mild disease only and the left common femoral artery appears to have mild disease only as well Superficial femoral arteries: The SFA on the right side appeared to be stented and appears to have [id number] disease only. The stents appeared to be patent The left SFA is occluded on long segment extending from the midportion all the way to the popliteal Popliteal arteries: The right popliteal appeared to be stented and the stent is patent. The left popliteal above the knee is occluded Below the knees: There is only one vessel run off on the right side with anterior TPL which is diffusely disease and one vessel run off on the left side with what it seems to be either posterior tibial or peroneal CONCLUSION: Severe diffuse disease involving the right anterior tibial artery. The stents in the right SFA and right popliteal are patent Occluded left SFA and left popliteal as described above POSTPROCEDURE MANAGEMENT: MUSIC THERAPIST to be performed in the next few weeks
--- NOTE | 2023-06-12 11:59 | IR ---
EXAMINATION TYPE: IR angio abdominal w runoff DATE OF EXAM: 06/12/2023 COMPARISON: NONE HISTORY: Fluoroscopy time. Fluoroscopy was provided to the referring clinician.
[2023-06-12] MEDS ORDERED: SODIUM CHLORIDE 0.9% 500 ML 500 ML IV ONE (14:00)
[2023-06-12 16:38] VITALS: BP 128/60; PULSE 66
== END 2023-06-12 16:46 | disposition home or self-care (01) ==
LOC: CATHCVL 08:44
PROVIDERS: ATTEND Internal Medicine Interventional Cardiology
DX: I70.213 Atherosclerosis of native arteries of extremities with intermittent claudication, bilateral legs (principal); I10 Essential (primary) hypertension; E78.5 Hyperlipidemia, unspecified; F17.210 Nicotine dependence, cigarettes, uncomplicated; Z82.49 Family history of ischemic heart disease and other diseases of the circulatory system; Z79.82 Long term (current) use of aspirin; Z79.899 Other long term (current) drug therapy
CPT/HCPCS: 36200; 75625; 75716; 76937; 80048; 85025; C1769 ×3; C1894 ×2; J2250; J2001; J1170; Q9966

== ENCOUNTER → 2023-08-16 | Day surgery (SDC) | payer MEDICARE ==
[~2023-08-16] MED LIST changes: -ALPRAZolam 0.25 MG TAB PO PRN; -ALPRAZolam 0.5 MG TAB PO PRN; -ASPIRIN 325 MG TAB PO PRN; -HEPARIN SODIUM,PORCINE (1 ML) 2,500 UNIT in SODIUM CHLORIDE 0.9% 250 ML IRRIGATION PRN; -HEPARIN SODIUM,PORCINE 10,000 UNIT in SODIUM CHLORIDE 0.9% 1,000 ML IRRIGATION PRN; +LACTATED RINGERS 1,000 ML IV SCH; +PROPOFOL 10 MG/ML 20 ML VIAL IV ONE; -SODIUM CHLORIDE 0.9% 1,000 ML in EMPTY BAG 1 BAG IV ONE; -ZOLPIDEM 5 MG TAB PO PRN
[2023-08-16 11:51] VITALS: TEMP 97.9
--- NOTE | 2023-08-16 11:57 | P.GSHP ---
History of Present Illness H&P Date: 08/16/23 Chief Complaint: Epigastric abdominal pain, iron deficiency anemia This 82-year-old female been safe for EGD. Patient presents epigastric abdominal pain. She's also had issues with anemia. 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 tingling to rt toes. pt states she haD a blood clot in her thigh-HAD STENT, thinks may have had tia History of Any Multi-Drug Resistant Organisms: None Reported Past Surgical History: Appendectomy, Cholecystectomy, Heart Catheterization, Heart Catheterization With Stent, Hysterectomy, Tonsillectomy Additional Past Surgical History / Comment(s): LAPAROSCOPIC EXAM, "POLYPS REMOVED FROM VOICE BOX", STENT TO RT LEG -02/22/23, COLONOSCOPY, Past Anesthesia/Blood Transfusion Reactions: No Reported Reaction Date of Last Stent Placement:: 02/22/23 Smoking Status: Current every day smoker - Past Family History Father Family Medical History: Myocardial Infarction (NE) Mother Family Medical History: No Reported History Medications and Allergies Home Medications Medication Instructions Recorded Confirmed Type Omeprazole [PriLOSEC] 20 mg PO 1200 06/16/19 08/14/23 History Aspirin 81 mg PO 1200 06/08/23 08/14/23 History Clopidogrel [Plavix] 75 mg PO 1200 06/08/23 08/14/23 History Ferrous Sulfate [Iron] 325 mg PO 1200 06/08/23 08/14/23 History buPROPion HCL [buPROPion HCL Xl] 150 mg PO DAILY 08/14/23 08/14/23 History Allergies Allergy/AdvReac Type Severity Reaction Status Date / Time codeine Allergy Rash/Hives Verified 08/16/23 11:14 estrogens, conjugated Allergy Rash/Hives Verified 08/16/23 11:14 [From Premarin] gold Au 198 [Gold Au-198] Allergy Rash/Hives Verified 08/16/23 11:14 ondansetron Allergy Unknown Verified 08/16/23 11:14 silver Allergy Rash/Hives Verified 08/16/23 11:14 NSAIDS (Non-Steroidal AdvReac stomach Verified 08/16/23 11:14 Anti-Inflamma upset Surgical - Exam Vital Signs Temp Pulse Resp BP Pulse Ox 97.9 F 91 16 179/83 97 08/16/23 11:25 08/16/23 11:25 08/16/23 11:25 08/16/23 11:25 08/16/23 11:25 - General well developed, no distress - Eyes PERRL - ENT normal pinna, normal nares - Neck no masses - Respiratory normal expansion - Cardiovascular Rhythm: regular - Abdomen Abdomen: soft, non tender Assessment and Plan Assessment: Epigastric pain, anemia. We'll perform EGD.
--- NOTE | 2023-08-16 12:06 | P.OP ---
Date of Procedure: 08/16/23 Preoperative Diagnosis: Epigastric dull pain Iron deficiency anemia Postoperative Diagnosis: Antral gastritis Hiatal hernia Esophagitis Procedure(s) Performed: EGD Anesthesia: MAC Surgeon: Tutu Ramirez Pathology: other Condition: stable Disposition: PACU Description of Procedure: Patient's placed on the endoscopy table in the lateral position. She received IV sedation. The gastroscope placed oropharynx passed in the esophagus and stomach. Scope was then placed through the pylorus. The first and second portion of the duodenum appeared normal. Scope was then brought back the antrum. This appeared mildly inflamed. A biopsies performed. Scope was unretroflexed and remainder of the stomach appeared normal. Patient had a moderate size hiatal hernia. The GE junction was at 38 cm. The distal esophagus was mildly inflamed. Biopsies performed. The proximal esophagus appeared normal. Scope was withdrawn.
[2023-08-16 13:27] VITALS: BP 162/83; PULSE 77; RESP 14
== END ==
LOC: ORWHC2ENDO 10:36
PROVIDERS: ATTEND Surgery
DX: K21.00 Gastro-esophageal reflux disease with esophagitis, without bleeding (principal); K29.50 Unspecified chronic gastritis without bleeding; K44.9 Diaphragmatic hernia without obstruction or gangrene; D50.9 Iron deficiency anemia, unspecified; I25.10 Atherosclerotic heart disease of native coronary artery without angina pectoris; E78.5 Hyperlipidemia, unspecified; J44.9 Chronic obstructive pulmonary disease, unspecified; I63.9 Cerebral infarction, unspecified; M19.90 Unspecified osteoarthritis, unspecified site; I10 Essential (primary) hypertension; F17.200 Nicotine dependence, unspecified, uncomplicated; Z86.73 Personal history of transient ischemic attack (TIA), and cerebral infarction without residual deficits; Z86.718 Personal history of other venous thrombosis and embolism; Z90.49 Acquired absence of other specified parts of digestive tract; Z98.890 Other specified postprocedural states; Z82.49 Family history of ischemic heart disease and other diseases of the circulatory system; Z79.82 Long term (current) use of aspirin; Z79.899 Other long term (current) drug therapy; Z88.2 Allergy status to sulfonamides; Z88.5 Allergy status to narcotic agent; Z88.6 Allergy status to analgesic agent; Z91.048 Other nonmedicinal substance allergy status; Z95.5 Presence of coronary angioplasty implant and graft; Z79.02 Long term (current) use of antithrombotics/antiplatelets
CPT/HCPCS: 88305; 43239; J2704

== ENCOUNTER 2024-03-05 07:24 | Day surgery (SDC) | payer MEDICARE, OTHER ==
[2024-03-04 10:04] VITALS: BMI 18.3
[~2024-03-05 07:24] MED LIST changes: +ALPRAZolam 0.25 MG TAB PO PRN; -LACTATED RINGERS 1,000 ML IV SCH; -PROPOFOL 10 MG/ML 20 ML VIAL IV ONE
[2024-03-05] MEDS: SODIUM CHLORIDE 0.9% 1,000 ML in EMPTY BAG 1 BAG IV ONE (07:48)
[2024-03-05] MEDS: IV FLUID CONTINUATION 1,000 ML IV ONE ×2 (07:49→12:55)
[2024-03-05 07:53] LABS: Basophils # (A) 0.2 k/uL (0-0.2); Basophils % (A) 1 %; Eosinophils # (A) 0.2 k/uL (0-0.7); Eosinophils % (A) 2 %; HCT 49.1 % (34.0-46.0); HGB 15.3 gm/dL (11.4-16.0); Lymphocytes # (A) 1.8 k/uL (1.0-4.8); Lymphocytes % (A) 18 %; MCHC 31.1 g/dL (31.0-37.0); MCV 99.5 fL (80.0-100.0); Mean Platelet Volume 8.9; Monocytes # (A) 0.5 k/uL (0-1.0); Monocytes % (A) 5 %; Neutrophils # (A) 7.3 k/uL (1.3-7.7); Neutrophils % (A) 71 %; Platelet Count 285 k/uL (150-450); RBC 4.94 m/uL (3.80-5.40); RDW 14.1 % (11.5-15.5); WBC 10.2 k/uL (3.8-10.6)
[2024-03-05 08:06] LABS: African American GFR (CKD) 82 (>60 ml/min/1.73 sqM); Anion Gap 5 mmol/L; Blood Urea Nitrogen 13 mg/dL (7-17); Calcium 10.8 mg/dL (8.4-10.2); Carbon Dioxide 24 mmol/L (22-30); Chloride 109 mmol/L (98-107); Glucose 96 mg/dL (74-99); Non-African American GFR(CKD) 71 (>60 ml/min/1.73 sqM); Sodium 138 mmol/L (137-145)
[2024-03-05 08:08] LABS: Potassium 4.5 mmol/L (3.5-5.1)
[2024-03-05] MEDS: ASPIRIN 81 MG ONE (08:16)
[2024-03-05] MEDS ORDERED: fentaNYL (PF) 50 MCG/ML 2 ML AMP ONE (08:23)
[2024-03-05] MEDS ORDERED: LIDOCAINE 1% INJ 10MG/ML (20 ML MDV) ONE (08:23)
[2024-03-05] MEDS ORDERED: HEPARIN SODIUM 1,000 UN/ML (10ML VL) ONE (08:23)
[2024-03-05] MEDS ORDERED: niCARdipine 25 MG/10 ML VIAL ONE (08:23)
[2024-03-05] MEDS: MIDAZOLAM 2 MG/2 ML VIAL IVP ONE ×2 (08:42→12:28)
[2024-03-05] MEDS: fentaNYL (PF) 50 MCG/ML 2 ML AMP IVP ONE ×4 (08:42→10:33)
[2024-03-05] MEDS: LIDOCAINE 1% INJ 10MG/ML (20 ML MDV) SQ ONE (08:44)
[2024-03-05] MEDS: HEPARIN SODIUM 1,000 UN/ML (10ML VL) IVP ONE ×5 (08:48→11:25)
[2024-03-05] MEDS: HYDROmorphone 0.5 MG/0.5 ML SYRINGE IVP ONE ×2 (10:07→10:47)
[2024-03-05] MEDS: MIDAZOLAM HCL 10 MG/10 ML VIAL IVP ONE (10:33)
[2024-03-05] MEDS: NITROGLYCERIN 1000MCG/10ML SYRINGE INTRAARTER ONE ×3 (10:55→12:29)
[2024-03-05] MEDS: niCARdipine Syringe (1,000 mcg/10 mL) INTRAARTER ONE ×3 (10:55→12:29)
[2024-03-05] MEDS: IOPAMIDOL-250 100ML BTL INTRAARTER ONE (11:09)
[2024-03-05] MEDS ORDERED: NALOXONE 0.4 MG/ML 1 ML VIAL IVP PRN (12:42)
[2024-03-05] MEDS ORDERED: MORPHINE SULFATE 2 MG/ML SYRINGE IVP PRN (14:07)
[2024-03-05] MEDS: IBUPROFEN 600 MG TAB PO PRN (17:28)
[2024-03-05] MEDS: ATORVASTATIN 80 MG TAB PO SCH (19:51)
--- NOTE | 2024-03-05 21:08 | P.PCN ---
Date of Procedure: 03/05/24 Operative Findings: Percutaneous peripheral arterial intervention Performing physician Griffin Medeiros MD Procedure performed 1. VEHICLE WINDOW TINTER and stenting of the right anterior tibial artery and right popliteal artery and right SFA 2. Adjunctive use of directional atherectomy and intravascular ultrasound and thrombectomy 3. Right lower extremity angiogram and left common femoral artery angiogram 4. Gradient measurement across the right common iliac artery Indication Symptomatic 83-year-old female patient who is known to have occluded right SFA and right popliteal and right anterior tibial artery Approach Left common femoral artery Complications None Level of sedation Moderate with sedation length of 4 hours Procedure description After obtaining informed consent the patient was brought to the cardiac Leak Inspector. The left common femoral artery was cannulated using micropuncture technique under ultrasound guidance the micropuncture wire passed easily subsequently I dilated the artery using a 6 Swedish dilator before I placed a 6 Swedish 70 cm sheath over the 035 stiff Glidewire. I was able to go up and over using 5 Swedish catheter and subsequently 035 stiff Glidewire was advanced to the right profunda. Then the sheath was advanced over the rim catheter and stiff Glidewire all the way to the proximal right common femoral artery. Right common femoral artery angiogram was performed with injection of contrast through the sheath and that revealed only one-vessel runoff below the knee with peroneal artery and occluded anterior tibial and posterior tibial arteries. Beside that the angiogram revealed occluded right popliteal and occluded right SFA which is in-stent occlusion. Further angiogram on steep angulation identified the stump of the right SFA. I decided to do a VEHICLE WINDOW TINTER. 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 Subsequently the catheter was advanced over the wire and I did injection of contrast through the catheter to prove that I was in the true lumen. After that and just to gain from lumen I did balloon angioplasty of the right anterior tibial artery using 3 mm x 240 mm balloon. Subsequently an angiogram showed nonflow limiting dissection involving the right anterior tibial artery. At that point I did place an 014 wire in the right anterior tibial artery and then I did intravascular ultrasound IVUS of the right anterior tibial artery and right popliteal and right SFA which showed that I was in the true lumen all the way. Because I was in the true lumen in the de subha segment of the proximal right SFA and because the lesion was not very calcified I did atherectomy using the Hawk 1 device with extraction of significant plaque. After that balloon angioplasty of the right SFA was performed using 6 mm x 240 mm Magda [id number] balloon. An angiogram after that was performed and showed there is no flow in the right SFA and right popliteal and right anterior tibial artery. Intravascular ultrasound was performed again and showed possible thrombus involving the mid and distal segment of the right SFA which is in-stent. I decided to do thrombectomy which was performed usingThe atherectomy/thrombectomy device and that was performed over 018 wire with extraction of white clot with better flow was identified in the right SFA and right popliteal but not ideal. At that point I decided to do selective injection. I advanced an 035 catheter over [address] to the right anterior tibial artery and I did perform an angiogram of the AT which showed dissection appears to be somewhat nonflow limiting but concerning. I did perform angioplasty again of the right anterior tibial artery this time using 3.5 mm balloon. Subsequently the angiogram of the right SFA showed what it seems to be flow-limiting dissection involving the proximal portion and the de subha segment which I decided to cover using the stents. The first stent deployed was delivered PTX and that was 7.0 x 80 and the second stent was 8.0 x 40 mm. Both stent were dilated using 6 mm balloon. After injection of nitroglycerin and nicardipine final angiogram was performed and showed sluggish flow but better than before. Because there was a concern about the lesion involving the right anterior tibial artery by the junction of the right popliteal I decided to balloon that lesion and subsequently I deployed a drug- eluting stent and that was 4.0 x 15 mm. The final angiogram showed reasonable angiographic results and at that point the procedure was completed with no complication Subsequently the long sheath was exchanged over a 035 wire into a short sheath but before that I did gradient measurement of the right external and common iliac and that came in to be around 8 mmHg which is not flow-limiting. Subsequently I did exchange the long sheath into short sheath before I did selective left common femoral artery angiogram and the procedure was completed with no complication Postprocedure management Dual antiplatelet therapy Consider oral anticoagulation Follow-up with the patient
[2024-03-06] MEDS: PANTOPRAZOLE 40 MG TABLET PO SCH (06:54)
[2024-03-06 07:06] VITALS: BP 132/64; PULSE 95; RESP 18; TEMP 99.7
[2024-03-06 07:24] LABS: Basophils # (A) 0.1 k/uL (0-0.2); Basophils % (A) 1 %; Eosinophils # (A) 0.3 k/uL (0-0.7); Eosinophils % (A) 3 %; HCT 40.4 % (34.0-46.0); HGB 12.5 gm/dL (11.4-16.0); Lymphocytes % (A) 10 %; MCH 31.3 pg (25.0-35.0); Macrocytosis Slight; Monocytes # (A) 0.5 k/uL (0-1.0); Monocytes % (A) 5 %; Neutrophils # (A) 7.3 k/uL (1.3-7.7); Neutrophils % (A) 78 %; Platelet Count 220 k/uL (150-450); WBC 9.5 k/uL (3.8-10.6)
[2024-03-06 07:39] LABS: African American GFR (CKD) >90 (>60 ml/min/1.73 sqM); Anion Gap 4 mmol/L; Blood Urea Nitrogen 7 mg/dL (7-17); Calcium 9.7 mg/dL (8.4-10.2); Carbon Dioxide 20 mmol/L (22-30); Chloride 114 mmol/L (98-107); Glucose 107 mg/dL (74-99); Non-African American GFR(CKD) 82 (>60 ml/min/1.73 sqM); Sodium 138 mmol/L (137-145)
[2024-03-06 08:34] LABS: Potassium 4.2 mmol/L (3.5-5.1)
[2024-03-06] MEDS: ASPIRIN 81 MG PO SCH (09:49)
[2024-03-06] MEDS: CLOPIDOGREL 75 MG TAB PO SCH (09:49)
[2024-03-06] MEDS: buPROPion XL 150 MG TAB.ER.24H PO SCH (09:49)
[2024-03-06] MEDS: MAGNESIUM OXIDE 400 MG TAB PO SCH (09:49)
--- NOTE | 2024-03-06 09:58 | P.DS ---
Providers Attending physician: Griffin Medeiros Primary care physician: Stated None Hospital Course: The patient is a pleasant 83-year-old female patient who underwent yesterday and extensive lower extremities peripheral arterial intervention including AUDIO VISUAL COLLECTIONS COORDINATOR of the right SFA and right popliteal and right anterior tibial artery. The procedure was performed from the left groin which is soft and nontender with no bruises. The patient was seen and evaluated this morning. She is asymptomatic and she is hemodynamically stable. The left groin as a mention is soft and nontender with no bruises. She does have an excellent right dorsalis pedis pulse. The patient will be discharged home on dual antiplatelet therapy along with aspirin and Plavix. She is intolerant to statin. In the past she was tried on oral anticoagulation but she developed anemia secondary to gastrointestinal bleeding. Plan - Discharge Summary Discharge Rx Participant: No New Discharge Prescriptions: Continue Omeprazole [PriLOSEC] 20 mg PO QAM Aspirin 81 mg PO QAM buPROPion HCL [buPROPion HCL Xl] 150 mg PO QAM Vitamin D(Unknown Dose) 1 dose PO QAM Motrin(Unknown Dose) 1 dose PO Q8H PRN PRN Reason: Pain Clopidogrel [Plavix] 75 mg PO QAM Vitamin C(Unknown Dose) 1 dose PO QAM Magnesium(Unknown Dose) 1 dose PO QAM Discharge Medication List Omeprazole [PriLOSEC] 20 mg PO QAM 06/16/19 [History] Aspirin 81 mg PO QAM 06/08/23 [History] Clopidogrel [Plavix] 75 mg PO QAM 06/08/23 [History] buPROPion HCL [buPROPion HCL Xl] 150 mg PO QAM 08/14/23 [History] Magnesium(Unknown Dose) 1 dose PO QAM 03/04/24 [History] Motrin(Unknown Dose) 1 dose PO Q8H PRN 03/04/24 [History] Vitamin C(Unknown Dose) 1 dose PO QAM 03/04/24 [History] Vitamin D(Unknown Dose) 1 dose PO QAM 03/04/24 [History] Follow up Appointment(s)/Referral(s): Griffin Medeiros MD [STAFF PHYSICIAN] - 1 Week (Office will call with appt date and time.) Patient Instructions/Handouts: Peripheral Vascular Disease (ED), Peripheral Artery Disease (ED), Moderate Sedation (ED) Activity/Diet/Wound Care/Special Instructions: *NO LIFTING, PUSHING, OR PULLING ANYTHING OVER 5 POUNDS FOR 5 DAYS *NO DRIVING FOR 3 DAYS *YOU CAN REMOVE YOUR DRESSING TOMORROW BUT DO NOT SUBMERSE YOUR PUNCTURE SITE IN WATER FOR A FEW DAYS TO PREVENT INFECTION - SO NO TUB BATHS, POOLS, HOT TUBS, DISHES...ETC *ANY SIGNS OF BLEEDING (HARDNESS, SWELLING, OR EXCESSIVE BRUISING) HOLD DIRECT PRESSURE ON YOUR PUNCTURE SITE AND COME TO THE NEAREST EMERGENCY ROOM TO GET YOUR PUNCTURE SITE LOOKED AT - DO NOT DRIVE YOURSELF! EITHER CALL EMS OR HAVE SOMEONE DRIVE YOU!
--- NOTE | 2024-03-07 12:35 | IR ---
EXAMINATION TYPE: IR stent intravas non coronary Intraoperative/procedural fluoroscopic services were provided. CLINICAL INDICATION:Female, 83 years old with history of Leg pain, 84.2m/31.6DAP, Lt gr sheath suture in pressure b; , [facility] Total fluoroscopy time not reported min. DAP: not reported Gycm2 uGym2 Please see the operative/procedural note for further details.
== END 2024-03-06 10:34 | disposition home or self-care (01) ==
LOC: CATHCVL 07:24 → 6NMEDSUR 12:35 → CATHCVL 03-06 10:34
PROVIDERS: ATTEND Internal Medicine Interventional Cardiology
DX: I70.213 Atherosclerosis of native arteries of extremities with intermittent claudication, bilateral legs (principal); I10 Essential (primary) hypertension; E78.5 Hyperlipidemia, unspecified; D50.0 Iron deficiency anemia secondary to blood loss (chronic)
CPT/HCPCS: 37227; 37230; 37252; 37253; 80048 ×2; 85025 ×2; C1894 ×2; C1769 ×5; C1725 ×3; C1887; C1714; C1753; C1874 ×2; C2628; J2250 ×2; J2001; J3010; J1644; J1170; Q9966; J2305